=== PATIENT | female | born 1955 | race Caucasian/White ===

== ENCOUNTER 2019-11-10 20:28 | Emergency (ER) | payer MEDICAID ==
[~2019-11-10 20:28] MED LIST: Metoclopramide 10 MG/2 ML SDV IVPUSH ONE; Sodium Chloride 0.9% 1,000 ML IV ONE
[2019-11-10 21:26] LABS: ANION GAP 10.8; CHLORIDE,CL 104 mmol/L (101-111); SODIUM,NA 136 mmol/L (135-145)
[2019-11-10] MEDS ORDERED: Sodium Chloride 0.9% 1,000 ML IV ONE (21:31)
--- NOTE | 2019-11-10 23:46 | EDM.PDOC ---
ED HPI GENERAL MEDICAL PROBLEM - General Chief Complaint: Gastrointestinal Problem Stated Complaint: AMB Time Seen by Provider: 11/10/19 20:50 Source of Information: Reports: Patient, EMS, EMS Notes Reviewed, Family, RN, RN Notes Reviewed History Limitations: Reports: No Limitations - History of Present Illness INITIAL COMMENTS - FREE TEXT/NARRATIVE: Patient presents to ER per [facility] with complaint of severe nausea and vomiting since Saturday. Patient denies diarrhea. Patient admits to feeling chilled at times. Patient admits to being unsteady recently. Patient states she just recently moved back to [place] to live with her son. ambulance providers state the patient had sour cream and onion chips sitting next to her and had been eating them prior to them picking her up. Patient states history of epilepsy, COPD, asthma. Onset: Gradual Onset Date: 11/06/19 Location: Reports: Abdomen Associated Symptoms: Reports: Nausea/Vomiting, Weakness Abdomen Pain Score (Numeric/FACES): 4 - Related Data Allergies Allergy/AdvReac Type Severity Reaction Status Date / Time carbamazepine [From Tegretol] Allergy Anaphylactic Verified 11/10/19 21:48 Shock epinephrine Allergy Itching Verified 11/10/19 21:48 indomethacin Allergy Numbness Verified 11/10/19 21:48 pregabalin [From Lyrica] Allergy Other Verified 11/10/19 21:48 primidone [From Mysoline] Allergy Dizziness Verified 11/10/19 21:48 Home Meds: Home Meds Acetaminophen with Codeine [Acetaminophen-Cod #4] 1 tab PO Q6H PRN 11/10/19 [ History] Budesonide/Formoterol [Symbicort 160-4.5 MCG] 1 puff INH ASDIRECTED 11/10/19 [ History] Losartan [Cozaar] 25 mg PO ASDIRECTED 11/10/19 [History] OXcarbazepine [Oxcarbazepine] 1 tab PO BID 11/10/19 [History] diphenhydrAMINE [Benadryl] 25 mg PO ASDIRECTED 11/10/19 [History] rOPINIRole [Requip] 0.25 mg PO BEDTIME 11/10/19 [History] traZODone HCl [Trazodone HCl] 150 mg PO BEDTIME 11/10/19 [History] Past Medical History HEENT History: Reports: Impaired Vision, Other (See Below) Other HEENT History: no teeth, not wearing dentures Cardiovascular History: Reports: Hypertension Respiratory History: Reports: COPD Musculoskeletal History: Reports: Fracture - Past Surgical History GI Surgical History: Reports: Appendectomy Social & Family History - Family History Family Medical History: Noncontributory - Tobacco Use Smoking Status *Q: Former Smoker Used Tobacco, but Quit: Yes Month/Year Tobacco Last Used: unk - Caffeine Use Caffeine Use: Reports: Coffee - Recreational Drug Use Recreational Drug Use: No ED ROS GENERAL - Review of Systems Review Of Systems: Comprehensive ROS is negative, except as noted in HPI. ED EXAM, GI/ABD - Physical Exam Exam: See Below Exam Limited By: No Limitations General Appearance: Alert, WD/WN, Mild Distress Eyes: Bilateral: Normal Appearance, EOMI Ears: Normal External Exam, Hearing Grossly Normal Nose: Normal Inspection Throat/Mouth: Normal Voice, No Airway Compromise, Other (ry mucous membranes). No: Normal Teeth Head: Atraumatic, Normocephalic Neck: Normal Inspection, Supple, Non-Tender, Full Range of Motion Respiratory/Chest: No Respiratory Distress, Lungs Clear, Normal Breath Sounds, No Accessory Muscle Use, Chest Non-Tender Cardiovascular: Normal Peripheral Pulses, Regular Rate, Rhythm, No Edema, No Gallop, No JVD, No Murmur, No Rub GI/Abdominal Exam: Normal Bowel Sounds, Soft, Non-Tender (Female) Exam: Deferred Rectal (Female) Exam: Deferred Back Exam: Normal Inspection, Full Range of Motion, NT Extremities: Normal Inspection, Normal Range of Motion, Non-Tender, Normal Capillary Refill, No Pedal Edema Neurological: Alert, Oriented, CN II-XII Intact, Normal Cognition, Normal Gait, Normal Reflexes, No Motor/Sensory Deficits Psychiatric: Normal Affect, Normal Mood, Anxious Skin Exam: Warm, Dry, Intact, Normal Color, No Rash Lymphatic: No Adenopathy Course - Vital Signs Last Recorded V/S: Last Vital Signs Temp 96.0 F L 11/10/19 20:44 Pulse 96 11/10/19 20:44 Resp 20 11/10/19 20:44 BP 134/83 11/10/19 20:46 Pulse Ox 99 11/10/19 20:44 - Orders/Labs/Meds Orders: Active Orders 24 hr Category Date Time Status EKG Documentation Completion [RC] STAT Care 11/10/19 20:23 Active Labs: Laboratory Tests 11/10/19 11/10/19 11/10/19 Range/Units 20:51 20:51 20:51 WBC 8.8 (5.0-10.0) 10^3/uL RBC 4.28 (4.2-5.4) 10^6/uL Hgb 13.4 (12.0-16.0) g/dL Hct 41.8 (37.0-47.0) % MCV 97.7 (80-100) fL MCH 31.3 (27.0-34.0) pg MCHC 32.1 L (33.0-35.0) g/dL Plt Count 105 L (150-450) 10^3/uL Neut % (Auto) 67.1 (42.2-75.2) % Lymph % (Auto) 17.4 L (20.5-50.1) % [place] % (Auto) 13.6 H (2-8) % Eos % (Auto) 1.4 (1.0-3.0) % Baso % (Auto) 0.5 (0.0-1.0) % Sodium 136 (135-145) mmol/L Potassium 3.8 (3.6-5.0) mmol/L Chloride 104 (101-111) mmol/L Carbon Dioxide 25.0 (21.0-31.0) mmol/L Anion Gap 10.8 BUN 20 H (7-18) mg/dL Creatinine 0.7 (0.6-1.3) mg/dL Est Cr Clr Drug Dosing 59.85 mL/min Estimated GFR (MDRD) > 60 BUN/Creatinine Ratio 28.57 Glucose 159 H (74-105) mg/dL Calcium 8.6 (8.4-10.2) mg/dl Total Bilirubin 0.5 (0.2-1.0) mg/dL AST 27 (10-42) IU/L ALT 37 (10-60) IU/L Alkaline Phosphatase 88 (42-121) IU/L Troponin I < 0.02 (0.00-0.02) ng/ml Total Protein 6.8 (6.7-8.2) g/dl Albumin 3.8 (3.2-5.5) g/dl Globulin 3.0 Albumin/Globulin Ratio 1.27 Amylase 32 (28-100) U/L Lipase 22 (22-51) U/L Urine Color (YELLOW) Urine Appearance (CLEAR) Urine pH (5.0-9.0) Ur Specific [place] (1.005-1.030) Urine Protein (NEGATIVE) Urine Glucose (UA) (NEGATIVE) Urine Ketones (NEGATIVE) Urine Occult Blood (NEGATIVE) Urine Nitrite (NEGATIVE) Urine Bilirubin (NEGATIVE) Urine Urobilinogen (0.2-1.0) mg/dL Ur Leukocyte Esterase (NEGATIVE) Urine RBC /HPF Urine WBC (0-5/HPF) /HPF Ur Epithelial Cells (NOT SEEN) /HPF Amorphous Sediment (NOT SEEN) /HPF Urine Bacteria (0-FEW/HPF) /HPF Urine Mucus (NOT SEEN) /LPF 11/10/19 Range/Units 23:36 WBC (5.0-10.0) 10^3/uL RBC (4.2-5.4) 10^6/uL Hgb (12.0-16.0) g/dL Hct (37.0-47.0) % MCV (80-100) fL MCH (27.0-34.0) pg MCHC (33.0-35.0) g/dL Plt Count (150-450) 10^3/uL Neut % (Auto) (42.2-75.2) % Lymph % (Auto) (20.5-50.1) % [place] % (Auto) (2-8) % Eos % (Auto) (1.0-3.0) % Baso % (Auto) (0.0-1.0) % Sodium (135-145) mmol/L Potassium (3.6-5.0) mmol/L Chloride (101-111) mmol/L Carbon Dioxide (21.0-31.0) mmol/L Anion Gap BUN (7-18) mg/dL Creatinine (0.6-1.3) mg/dL Est Cr Clr Drug Dosing mL/min Estimated GFR (MDRD) BUN/Creatinine Ratio Glucose (74-105) mg/dL Calcium (8.4-10.2) mg/dl Total Bilirubin (0.2-1.0) mg/dL AST (10-42) IU/L ALT (10-60) IU/L Alkaline Phosphatase (42-121) IU/L Troponin I (0.00-0.02) ng/ml Total Protein (6.7-8.2) g/dl Albumin (3.2-5.5) g/dl Globulin Albumin/Globulin Ratio Amylase (28-100) U/L Lipase (22-51) U/L Urine Color Yellow (YELLOW) Urine Appearance Slightly cloudy (CLEAR) Urine pH 7.0 (5.0-9.0) Ur Specific [place] 1.020 (1.005-1.030) Urine Protein Negative (NEGATIVE) Urine Glucose (UA) Negative (NEGATIVE) Urine Ketones Negative (NEGATIVE) Urine Occult Blood Trace-intact H (NEGATIVE) Urine Nitrite Negative (NEGATIVE) Urine Bilirubin Negative (NEGATIVE) Urine Urobilinogen 0.2 (0.2-1.0) mg/dL Ur Leukocyte Esterase Negative (NEGATIVE) Urine RBC 0-5 /HPF Urine WBC Not seen (0-5/HPF) /HPF Ur Epithelial Cells Few (NOT SEEN) /HPF Amorphous Sediment Rare (NOT SEEN) /HPF Urine Bacteria Rare (0-FEW/HPF) /HPF Urine Mucus Rare (NOT SEEN) /LPF Meds: Medications Discontinued Medications Generic Name Dose Route Start Last Admin Trade Name Freq PRN Reason Stop Dose Admin Sodium Chloride 1,000 mls @ 999 mls/hr 11/10/19 20:24 11/10/19 20:37 Normal Saline IV 11/10/19 21:24 999 mls/hr .BOLUS ONE Administration Sodium Chloride 1,000 mls @ 999 mls/hr 11/10/19 21:31 11/10/19 22:40 Normal Saline IV 11/10/19 22:31 100 mls/hr .BOLUS ONE Infusion Metoclopramide HCl 10 mg 11/10/19 20:24 11/10/19 20:38 Reglan IVPUSH 11/10/19 20:25 10 mg ONETIME ONE Administration Metoclopramide HCl 10 mg 11/10/19 23:55 Reglan IVPUSH 11/10/19 23:56 ONETIME ONE Departure - Departure Time of Disposition: 23:55 Disposition: Home, Self-Care 01 Condition: Fair Clinical Impression: Vomiting Gastritis Qualifiers: Gastritis type: unspecified gastritis Chronicity: acute Gastritis bleeding: without bleeding Qualified Code(s): K29.00 - Acute gastritis without bleeding - Discharge Information *PRESCRIPTION DRUG MONITORING PROGRAM REVIEWED*: No *COPY OF PRESCRIPTION DRUG MONITORING REPORT IN PATIENT KATINA: No Instructions: Gastritis, Adult, [id number], Nausea and Vomiting, Adult, Easy- to-Read, Abdominal Pain, Adult, [id number], Dehydration, Elderly, [id number] , Food Poisoning, [id number] Forms: ED Department Discharge Additional Instructions: bowel rest, clear liquids, advance diet to soft bland foods as tolerated drink small amounts of liquid, preferably water frequently throughout the day Follow-up with your primary care provider RX: Reglan as directed for nausea/upset stomach Sepsis Event Note - Evaluation Sepsis Screening Result: No Definite Risk - Focused Exam Vital Signs: Vital Signs Temp Pulse Resp BP Pulse Ox 11/10/19 20:46 134/83 11/10/19 20:44 96.0 F L 96 20 196/126 H 99 Date Exam was Performed: 11/10/19 Time Exam was Performed: 23:57 - My Orders Last 24 Hours: My Active Orders 11/10/19 20:23 EKG Documentation Completion [RC] STAT - Assessment/Plan Last 24 Hours: My Active Orders 11/10/19 20:23 EKG Documentation Completion [RC] STAT
[2019-11-10] MEDS ORDERED: Metoclopramide 10 MG/2 ML SDV IVPUSH ONE (23:55)
[2019-11-11] MEDS ORDERED: cloNIDine 0.1 MG Tab PO ONE (00:32)
[2019-11-11 00:37] VITALS: BP 212/105
[2019-11-11 01:00] VITALS: PULSE 79
== END 2019-11-11 00:25 | disposition home or self-care (01) ==
LOC: DL.ED 20:28
DX: K29.00 Acute gastritis without bleeding (principal); I10 Essential (primary) hypertension; J44.9 Chronic obstructive pulmonary disease, unspecified; Z88.8 Allergy status to other drugs, medicaments and biological substances; Z79.51 Long term (current) use of inhaled steroids; Z79.899 Other long term (current) drug therapy; Z87.891 Personal history of nicotine dependence
CPT/HCPCS: 36415; 80053; 81001; 82150; 83690; 84484; 85025; 93005; 96361; 96374; 96376; 99285; A9270; J2765; J7030

== ENCOUNTER 2019-11-15 17:54 | Emergency (ER) | payer MEDICAID ==
[2019-11-15 19:12] VITALS: BP 138/95; PULSE 99
--- NOTE | 2019-11-15 21:18 | EDM.PDOC ---
ED HPI GENERAL MEDICAL PROBLEM - General Chief Complaint: Lower Extremity Injury/Pain Stated Complaint: FELL AND INJURED RT ANKLE Time Seen by Provider: 11/15/19 19:20 Source of Information: Reports: Patient History Limitations: Reports: No Limitations - History of Present Illness INITIAL COMMENTS - FREE TEXT/NARRATIVE: slipped on bag pain right ankle non weight bearing, has walker coming. 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 Right Ankle Pain Score (Numeric/FACES): 7 - Related Data Allergies Allergy/AdvReac Type Severity Reaction Status Date / Time carbamazepine [From Tegretol] Allergy Anaphylactic Verified 11/10/19 21:48 Shock epinephrine Allergy Itching Verified 11/10/19 21:48 gabapentin Allergy Numbness Verified 11/15/19 19:14 indomethacin Allergy Numbness Verified 11/10/19 21:48 phenytoin [From Dilantin] Allergy Other Verified 11/15/19 19:14 pregabalin [From Lyrica] Allergy Other Verified 11/10/19 21:48 primidone [From Mysoline] Allergy Dizziness Verified 11/10/19 21:48 Home Meds: Home Meds Acetaminophen with Codeine [Acetaminophen-Cod #4] 1 tab PO Q6H PRN 11/10/19 [ History] Budesonide/Formoterol [Symbicort 160-4.5 MCG] 1 puff INH ASDIRECTED 11/10/19 [ History] Losartan [Cozaar] 25 mg PO ASDIRECTED 11/10/19 [History] OXcarbazepine [Oxcarbazepine] 1 tab PO BID 11/10/19 [History] diphenhydrAMINE [Benadryl] 25 mg PO Q6H 11/10/19 [History] rOPINIRole [Requip] 0.25 mg PO BEDTIME 11/10/19 [History] traZODone HCl [Trazodone HCl] 150 mg PO BEDTIME 11/10/19 [History] Albuterol [Ventolin HFA] 2 puff INH BID 11/15/19 [History] Divalproex Sodium [Depakote] 500 mg PO BIDMEALS 11/15/19 [History] Losartan Potassium 25 mg PO DAILY 11/15/19 [History] Pantoprazole [ProTONIX] 40 mg PO BID 11/15/19 [History] Past Medical History HEENT History: Reports: Impaired Vision, Other (See Below) Other HEENT History: no teeth, not wearing dentures Cardiovascular History: Reports: Hypertension Respiratory History: Reports: COPD Gastrointestinal History: Reports: None Genitourinary History: Reports: None Musculoskeletal History: Reports: Fracture, Fibromyalgia Neurological History: Reports: None Psychiatric History: Reports: Other (See Below) Other Psychiatric History: manic depressive Endocrine/Metabolic History: Reports: None Hematologic History: Reports: None Immunologic History: Reports: None Oncologic (Cancer) History: Reports: None Dermatologic History: Reports: None - Infectious Disease History Infectious Disease History: Reports: None - Past Surgical History Head Surgeries/Procedures: Reports: None GI Surgical History: Reports: Appendectomy Social & Family History - Family History Family Medical History: Noncontributory - Tobacco Use Smoking Status *Q: Former Smoker Years of Tobacco use: 30 Packs/Tins Daily: 0 Used Tobacco, but Quit: No - Caffeine Use Caffeine Use: Reports: Coffee, Soda, Tea - Recreational Drug Use Recreational Drug Use: No Review of Systems - Review of Systems Review Of Systems: Comprehensive ROS is negative, except as noted in HPI. ED EXAM, GENERAL - Physical Exam Exam: See Below Exam Limited By: No Limitations General Appearance: Alert, Mild Distress Eye Exam: Bilateral Eye: EOMI Ears: Normal External Exam Throat/Mouth: Normal Voice, No Airway Compromise Head: Atraumatic, Normocephalic Neck: Full Range of Motion Respiratory/Chest: No Respiratory Distress, Lungs Clear, Normal Breath Sounds Cardiovascular: Regular Rate, Rhythm GI/Abdominal: Soft Extremities: Normal Range of Motion, Joint Swelling (mild right ankle), Other ( old well healed surgical scars to lright ankle. ). No: Increased Warmth Neurological: Alert, Oriented Psychiatric: Normal Affect Skin Exam: Warm, Dry, Intact Course - Vital Signs Last Recorded V/S: Last Vital Signs Temp 97.2 F 11/15/19 19:11 Pulse 99 11/15/19 19:11 Resp 18 11/15/19 19:11 BP 138/95 H 11/15/19 19:11 Pulse Ox 98 11/15/19 19:11 Departure - Departure Time of Disposition: 21:14 Disposition: Home, Self-Care 01 Condition: Good Clinical Impression: Fall, Right ankle pain - Discharge Information *PRESCRIPTION DRUG MONITORING PROGRAM REVIEWED*: No *COPY OF PRESCRIPTION DRUG MONITORING REPORT IN PATIENT KATINA: No Instructions: Ankle Sprain, [id number] Forms: ED Department Discharge Additional Instructions: rest elevate ice to ankle cam boot weight bearing s tolerated recheck clinic one week alternate tylenol 650mg and ibuprofen 400mg every 4 hours as needed for discomfort Sepsis Event Note - Evaluation Sepsis Screening Result: No Definite Risk - Focused Exam Vital Signs: Vital Signs Temp Pulse Resp BP Pulse Ox 11/15/19 19:11 97.2 F 99 18 138/95 H 98 Date Exam was Performed: 11/16/19 Time Exam was Performed: 04:22
== END 2019-11-15 21:25 | disposition home or self-care (01) ==
LOC: DL.ED 17:54
DX: M25.571 Pain in right ankle and joints of right foot (principal); I10 Essential (primary) hypertension; J44.9 Chronic obstructive pulmonary disease, unspecified; F32.9 Major depressive disorder, single episode, unspecified; Z87.891 Personal history of nicotine dependence; Z79.899 Other long term (current) drug therapy; Z88.8 Allergy status to other drugs, medicaments and biological substances; W22.8XXA Striking against or struck by other objects, initial encounter
CPT/HCPCS: 73610-RT; 99283-25

== ENCOUNTER 2020-07-02 23:05 | Emergency (ER) | payer MEDICAID ==
[2020-07-02 23:19] VITALS: BP 148/85; PULSE 90
[2020-07-03 00:05] LABS: ANION GAP 12.9 mEq/L (7-13); CHLORIDE,CL 107 mmol/L (98-107); SODIUM,NA 144 mmol/L (136-145)
[2020-07-03] MEDS ORDERED: methylPREDNISolone Sodium Succinate 125 MG/2 ML SDV IVPUSH ONE (00:09)
[2020-07-03] MEDS ORDERED: Aspirin 81 MG Tab.Chew PO ONE (00:10)
--- NOTE | 2020-07-03 00:13 | CR ---
PROCEDURE INFORMATION: Exam: XR Chest, 1 View Exam date and time: 07/02/2020 11:59 PM Age: 64 years old Clinical indication: Other: Chest pain; Additional info: SOB, chest pain TECHNIQUE: Imaging protocol: XR of the chest Views: 1 view. COMPARISON: No relevant prior studies available. FINDINGS: Lungs: Mild apical hyperlucency suspicious for COPD. Mild central vascular congestion. Alveolar opacity in the medial basilar distributions bilaterally, right greater than left, concerning for basilar pneumonia versus edema or atelectasis. Pleural space: No pleural effusion. No pneumothorax. Heart/Mediastinum: Moderate cardiomegaly. No tracheal/mediastinal shift. Bones/joints: No acute osseous abnormalities are identified. Osteopenia. IMPRESSION: 1. Medial basilar alveolar densities, right greater than left, concerning for possible pneumonia versus atelectasis or edema. 2. Cardiomegaly and mild vascular congestion. 3. Suspect underlying COPD.
[2020-07-03] MEDS ORDERED: Azithromycin 250 MG Tab PO ONE (00:30)
[2020-07-03] MEDS ORDERED: Levofloxacin 500 MG Tab PO ONE (00:40)
--- NOTE | 2020-07-03 00:53 | EDM.PDOC ---
ED HPI GENERAL MEDICAL PROBLEM - General Chief Complaint: Respiratory Problem Stated Complaint: SOB, COBD, CHEST PAIN, ASTHMA, Time Seen by Provider: 07/02/20 23:15 Source of Information: Reports: Patient History Limitations: Reports: No Limitations - History of Present Illness INITIAL COMMENTS - FREE TEXT/NARRATIVE: ED with c/o SOB occasional cough, Hx COPD and pneumonia this time of year. Possible COVID exposure . States does not go out but has had notices placed on door the residents in building have been positive. Past 2 days using neb every 4 hours. Denies fever or chills no vomiting. Non productive cough. No nausea or vomiting. Denies chest pain. - Related Data Allergies Allergy/AdvReac Type Severity Reaction Status Date / Time carbamazepine [From Tegretol] Allergy Anaphylactic Verified 11/10/19 21:48 Shock epinephrine Allergy Itching Verified 11/10/19 21:48 gabapentin Allergy Numbness Verified 11/15/19 19:14 indomethacin Allergy Numbness Verified 11/10/19 21:48 phenytoin [From Dilantin] Allergy Other Verified 11/15/19 19:14 pregabalin [From Lyrica] Allergy Other Verified 11/10/19 21:48 primidone [From Mysoline] Allergy Dizziness Verified 11/10/19 21:48 Home Meds: Home Meds Acetaminophen with Codeine [Acetaminophen-Cod #4] 1 tab PO Q6H PRN 11/10/19 [H istory] Budesonide/Formoterol [Symbicort 160-4.5 MCG] 1 puff INH ASDIRECTED 11/10/19 [History] Losartan [Cozaar] 25 mg PO ASDIRECTED 11/10/19 [History] OXcarbazepine [Oxcarbazepine] 1 tab PO BID 11/10/19 [History] diphenhydrAMINE [Benadryl] 25 mg PO Q6H 11/10/19 [History] rOPINIRole [Requip] 0.25 mg PO BEDTIME 11/10/19 [History] traZODone HCl [Trazodone HCl] 150 mg PO BEDTIME 11/10/19 [History] Albuterol [Ventolin HFA] 2 puff INH BID 11/15/19 [History] Divalproex Sodium [Depakote] 500 mg PO BIDMEALS 11/15/19 [History] Losartan Potassium 25 mg PO DAILY 11/15/19 [History] Pantoprazole [ProTONIX] 40 mg PO BID 11/15/19 [History] Past Medical History HEENT History: Reports: Impaired Vision, Other (See Below) Other HEENT History: no teeth, not wearing dentures Cardiovascular History: Reports: Hypertension Respiratory History: Reports: COPD Gastrointestinal History: Reports: None Genitourinary History: Reports: None Musculoskeletal History: Reports: Fracture, Fibromyalgia Neurological History: Reports: None Psychiatric History: Reports: Other (See Below) Other Psychiatric History: manic depressive Endocrine/Metabolic History: Reports: None Hematologic History: Reports: None Immunologic History: Reports: None Oncologic (Cancer) History: Reports: None Dermatologic History: Reports: None - Infectious Disease History Infectious Disease History: Reports: None - Past Surgical History Head Surgeries/Procedures: Reports: None GI Surgical History: Reports: Appendectomy Social & Family History - Family History Family Medical History: Noncontributory - Tobacco Use Smoking Status *Q: Former Smoker Used Tobacco, but Quit: Yes Month/Year Tobacco Last Used: 07/02 - Caffeine Use Caffeine Use: Reports: Coffee, Soda, Tea - Recreational Drug Use Recreational Drug Use: No ED ROS GENERAL - Review of Systems Review Of Systems: Comprehensive ROS is negative, except as noted in HPI. ED EXAM, GENERAL - Physical Exam Exam: See Below Exam Limited By: No Limitations General Appearance: Alert, Mild Distress Eye Exam: Bilateral Eye: EOMI Ears: Normal External Exam, Hearing Grossly Normal Nose: Normal Inspection Throat/Mouth: Normal Inspection Head: Atraumatic, Normocephalic Neck: Normal Inspection Respiratory/Chest: Decreased Breath Sounds, Other (mild exertional dyspnea and orthopnea). No: Wheezing Cardiovascular: Normal Peripheral Pulses, Regular Rate, Rhythm, No Edema GI/Abdominal: Normal Bowel Sounds, Soft Extremities: Normal Inspection, Normal Range of Motion Neurological: Alert, Oriented Psychiatric: Normal Affect Skin Exam: Warm, Dry, Intact, Normal Color Course - Vital Signs Last Recorded V/S: Last Vital Signs Temp 96.6 F L 07/02/20 23:15 Pulse 90 07/02/20 23:15 Resp 13 07/02/20 23:15 BP 148/85 H 07/02/20 23:15 Pulse Ox 97 07/02/20 23:15 - Orders/Labs/Meds Labs: Laboratory Tests 07/02/20 07/02/20 07/02/20 Range/Units 22:33 22:33 22:33 WBC 7.4 (5.0-10.0) 10^3/uL RBC 4.38 (4.2-5.4) 10^6/uL Hgb 13.5 (12.0-16.0) g/dL Hct 42.1 (37.0-47.0) % MCV 96.1 (80-100) fL MCH 30.8 (27.0-34.0) pg MCHC 32.1 L (33.0-35.0) g/dL Plt Count 167 (150-450) 10^3/uL Neut % (Auto) 58.5 (42.2-75.2) % Lymph % (Auto) 23.2 (20.5-50.1) % [place] % (Auto) 13.3 H (2-8) % Eos % (Auto) 4.5 H (1.0-3.0) % Baso % (Auto) 0.5 (0.0-1.0) % PT 10.4 (9.0-12.0) SEC INR 1.1 (0.9-1.2) Sodium 144 (136-145) mmol/L Potassium 3.9 (3.5-5.1) mmol/L Chloride 107 (98-107) mmol/L Carbon Dioxide 28 (21-32) mmol/L Anion Gap 12.9 (7-13) mEq/L BUN 20 H (7-18) mg/dL Creatinine 0.86 (0.55-1.02) mg/dL Est Cr Clr Drug Dosing 51.18 mL/min Estimated GFR (MDRD) > 60 BUN/Creatinine Ratio 23.3 (No establ ref range) Glucose 105 H (74-99) mg/dL Lactic Acid (0.4-2.0) mmol/L Calcium 8.9 (8.5-10.1) mg/dL Total Bilirubin 0.2 (0.2-1.0) mg/dL AST 11 L (15-37) U/L ALT 12 L (14-59) U/L Alkaline Phosphatase 68 (46-116) U/L Troponin I < 0.017 (0.000-0.056) ng/mL B-Natriuretic Peptide 115 H (0-100) pg/ml Total Protein 6.4 (6.4-8.2) g/dL Albumin 3.1 L (3.4-5.0) g/dL Globulin 3.3 Albumin/Globulin Ratio 0.94 Amylase 43 (25-115) U/L Lipase (73-393) U/L SARS CoV-2 RNA Rapid JOY (NEGATIVE) 07/02/20 07/02/20 07/02/20 Range/Units 22:33 22:33 23:25 WBC (5.0-10.0) 10^3/uL RBC (4.2-5.4) 10^6/uL Hgb (12.0-16.0) g/dL Hct (37.0-47.0) % MCV (80-100) fL MCH (27.0-34.0) pg MCHC (33.0-35.0) g/dL Plt Count (150-450) 10^3/uL Neut % (Auto) (42.2-75.2) % Lymph % (Auto) (20.5-50.1) % [place] % (Auto) (2-8) % Eos % (Auto) (1.0-3.0) % Baso % (Auto) (0.0-1.0) % PT (9.0-12.0) SEC INR (0.9-1.2) Sodium (136-145) mmol/L Potassium (3.5-5.1) mmol/L Chloride (98-107) mmol/L Carbon Dioxide (21-32) mmol/L Anion Gap (7-13) mEq/L BUN (7-18) mg/dL Creatinine (0.55-1.02) mg/dL Est Cr Clr Drug Dosing mL/min Estimated GFR (MDRD) BUN/Creatinine Ratio (No establ ref range) Glucose (74-99) mg/dL Lactic Acid 2.2 H* (0.4-2.0) mmol/L Calcium (8.5-10.1) mg/dL Total Bilirubin (0.2-1.0) mg/dL AST (15-37) U/L ALT (14-59) U/L Alkaline Phosphatase (46-116) U/L Troponin I (0.000-0.056) ng/mL B-Natriuretic Peptide (0-100) pg/ml Total Protein (6.4-8.2) g/dL Albumin (3.4-5.0) g/dL Globulin Albumin/Globulin Ratio Amylase (25-115) U/L Lipase 79 (73-393) U/L SARS CoV-2 RNA Rapid JOY Negative (NEGATIVE) Meds: Medications Discontinued Medications Generic Name Dose Route Start Last Admin Trade Name Freq PRN Reason Stop Dose Admin Aspirin 324 mg 07/03/20 00:10 07/03/20 00:17 Aspirin PO 07/03/20 00:11 324 mg ONETIME ONE Administration Azithromycin 500 mg 07/03/20 00:30 Zithromax PO 07/03/20 00:31 ONETIME ONE Levofloxacin 500 mg 07/03/20 00:40 07/03/20 00:44 Levaquin PO 07/03/20 00:41 500 mg ONETIME ONE Administration Methylprednisolone Sodium Succinate 125 mg 07/03/20 00:09 07/03/20 00:17 Solu-Medrol IVPUSH 07/03/20 00:10 125 mg ONETIME ONE Administration Departure - Departure Time of Disposition: 00:50 Disposition: Home, Self-Care 01 Condition: Fair Clinical Impression: COPD exacerbation Pneumonia Qualifiers: Pneumonia type: due to unspecified organism Laterality: bilateral Lung location: lower lobe of lung Qualified Code(s): J18.9 - Pneumonia, unspecified organism - Discharge Information *PRESCRIPTION DRUG MONITORING PROGRAM REVIEWED*: No *COPY OF PRESCRIPTION DRUG MONITORING REPORT IN PATIENT KATINA: No Instructions: Chronic Obstructive Pulmonary Disease, [id number], Community- Acquired Pneumonia, Adult, [id number] Forms: ED Department Discharge Additional Instructions: rest levaquin 500mg daily for one week clinic recheck this week urgent follow up if symptoms worsen prednisone 20mg daily for 5 days continue home medications albuterol neb every 4 hours as needed Sepsis Event Note (ED) - Evaluation Sepsis Screening Result: No Definite Risk - Focused Exam Vital Signs: Vital Signs Temp Pulse Resp BP Pulse Ox 07/02/20 23:15 96.6 F L 90 13 148/85 H 97
== END 2020-07-03 00:57 | disposition home or self-care (01) ==
LOC: DL.ED 23:05
DX: J18.9 Pneumonia, unspecified organism (principal); J44.1 Chronic obstructive pulmonary disease with (acute) exacerbation; I10 Essential (primary) hypertension; Z87.891 Personal history of nicotine dependence; Z88.8 Allergy status to other drugs, medicaments and biological substances; Z88.6 Allergy status to analgesic agent; Z79.899 Other long term (current) drug therapy; Z20.828 Contact with and (suspected) exposure to other viral communicable diseases
CPT/HCPCS: 36415; 71045; 80053; 82150; 83605; 83690; 83880; 84484; 85025; 85610; 87635; 93005; 96374; 99285; A9270; J2930; U0002

== ENCOUNTER 2020-11-24 23:10 | Emergency (ER) | payer MEDICAID ==
--- NOTE | 2020-11-24 23:24 | EDM.PDOC ---
ED HPI GENERAL MEDICAL PROBLEM - General Stated Complaint: SHOULDER POPPED RIGHT HAND NUMBNESS Time Seen by Provider: 11/24/20 23:23 Source of Information: Reports: Patient, Family (Son), RN, RN Notes Reviewed History Limitations: Reports: No Limitations - History of Present Illness INITIAL COMMENTS - FREE TEXT/NARRATIVE: Patient presents to the ED via personal vehicle with son for complaints of right shoulder pain and numbness. The patient reports a history of bilateral rotator cuff surgery with surgery on the right roughly eight years ago. She states two nights ago she was rolling over in bed and noticed her shoulder "popped." When she woke in the morning she noticed an increase in pain from the normal baseline. Tonight she states she is now experiencing tingling down the extremity, into her fingertips, at motion and at rest. She does attest to not using the extremity often due to pain. She denies recent injury to the upper extremity. She denies loss of motor function from baseline. The patient reports she was scheduled for an MRI for followup of her previous rotator cuff injury, but she was not able to perform the exam due to anxiety. Right Shoulder Pain Score (Numeric/FACES): 7 - Related Data Allergies Allergy/AdvReac Type Severity Reaction Status Date / Time carbamazepine [From Tegretol] Allergy Anaphylactic Verified 11/24/20 23:26 Shock epinephrine Allergy Itching Verified 11/24/20 23:26 gabapentin Allergy Numbness Verified 11/24/20 23:26 indomethacin Allergy Numbness Verified 11/24/20 23:26 phenytoin [From Dilantin] Allergy Other Verified 11/24/20 23:26 pregabalin [From Lyrica] Allergy Other Verified 11/24/20 23:26 primidone [From Mysoline] Allergy Dizziness Verified 11/24/20 23:26 Home Meds: Home Meds Acetaminophen with Codeine [Acetaminophen-Cod #4] 1 tab PO Q6H PRN 11/10/19 [History] Budesonide/Formoterol [Symbicort 160-4.5 MCG] 1 puff INH ASDIRECTED 11/10/19 [History] Losartan [Cozaar] 25 mg PO ASDIRECTED 11/10/19 [History] OXcarbazepine [Oxcarbazepine] 1 tab PO BID 11/10/19 [History] diphenhydrAMINE [Benadryl] 25 mg PO Q6H 11/10/19 [History] rOPINIRole [Requip] 0.25 mg PO BEDTIME 11/10/19 [History] traZODone HCl [Trazodone HCl] 150 mg PO BEDTIME 11/10/19 [History] Albuterol [Ventolin HFA] 2 puff INH BID 11/15/19 [History] Divalproex Sodium [Depakote] 500 mg PO BIDMEALS 11/15/19 [History] Losartan Potassium 25 mg PO DAILY 11/15/19 [History] Pantoprazole [ProTONIX] 40 mg PO BID 11/15/19 [History] Past Medical History HEENT History: Reports: Impaired Vision, Other (See Below) Other HEENT History: no teeth, not wearing dentures Cardiovascular History: Reports: Hypertension Respiratory History: Reports: COPD Gastrointestinal History: Reports: None Genitourinary History: Reports: None Musculoskeletal History: Reports: Fracture, Fibromyalgia Neurological History: Reports: None Psychiatric History: Reports: Other (See Below) Other Psychiatric History: manic depressive Endocrine/Metabolic History: Reports: None Hematologic History: Reports: None Immunologic History: Reports: None Oncologic (Cancer) History: Reports: None Dermatologic History: Reports: None - Infectious Disease History Infectious Disease History: Reports: None - Past Surgical History Head Surgeries/Procedures: Reports: None GI Surgical History: Reports: Appendectomy Social & Family History - Family History Family Medical History: No Pertinent Family History - Caffeine Use Caffeine Use: Reports: Coffee, Soda, Tea Review of Systems - Review of Systems Review Of Systems: Comprehensive ROS is negative, except as noted in HPI. ED EXAM, GENERAL - Physical Exam Exam: See Below Exam Limited By: No Limitations General Appearance: Alert, No Apparent Distress Eye Exam: Bilateral Eye: EOMI, Normal Inspection, PERRL (3mm) Throat/Mouth: Normal Inspection, Normal Voice, No Airway Compromise Head: Atraumatic, Normocephalic Respiratory/Chest: No Respiratory Distress, Lungs Clear, Normal Breath Sounds, No Accessory Muscle Use, Chest Non-Tender Cardiovascular: Normal Peripheral Pulses, Regular Rate, Rhythm, No Edema, No Gallop, No JVD, No Murmur, No Rub Peripheral Pulses: 2+: Radial (L), Radial (R) Back Exam: Normal Inspection, Full Range of Motion Extremities: No Pedal Edema, Normal Capillary Refill, Arm Pain (To right shoulder with tingling to distal extremity), Limited Range of Motion (To bilateral upper extremities; Hx of rotator cuff surgery). No: Joint Swelling, Increased Warmth, Mottled, Pallor, Redness Neurological: Alert, Oriented, CN II-XII Intact, Normal Cognition, Normal Gait, No Motor/Sensory Deficits Psychiatric: Normal Affect, Normal Mood Skin Exam: Warm, Dry, Intact, Normal Color, No Rash. No: Ecchymosis, Erythema, Jaundice, Mottled, Pallor, Petechiae Course - Vital Signs Last Recorded V/S: Last Vital Signs Temp 98.2 F 11/24/20 23:26 Pulse 89 11/24/20 23:26 Resp 20 11/24/20 23:26 BP 144/87 H 11/24/20 23:50 Pulse Ox 96 11/24/20 23:26 - Re-Assessments/Exams Free Text/Narrative Re-Assessment/Exam: 11/25/20 Given lack of acute mechanism of injury to extremity will refrain from xray at this time; no gross deformity noted, no increase in pain with motion. Patient reports improvement in pain to extremity with application of sling. Patient instructed to follow up with her primary care provider regarding need for MRI and the possibility of an anxiolytic while obtaining image. Discussed supportive cares for pain management. Red flag signs and symptoms which would warrant reevaluation discussed. Patient verbalized understanding and agreement with the plan of care. Departure - Departure Time of Disposition: 23:41 Disposition: Home, Self-Care 01 Condition: Good Clinical Impression: Hx of rotator cuff surgery, Right arm numbness Right shoulder pain Qualifiers: Chronicity: chronic Qualified Code(s): M25.511 - Pain in right shoulder - Discharge Information *PRESCRIPTION DRUG MONITORING PROGRAM REVIEWED*: Not Applicable *COPY OF PRESCRIPTION DRUG MONITORING REPORT IN PATIENT KATINA: Not Applicable Instructions: How To Use a Sling, [id number] Forms: ED Department Discharge Additional Instructions: 1.) Follow up with your primary care provider regarding today's visit for ongoing management of chronic injury; you may need an MRI or Physical Therapy. 2.) Utilize cling for comfort. 3.) You may use ibuprofen (Advil/Motrin) 400mg every six hours, as pain persists. You may use acetaminophen (Tylenol) 650mg every six hours, as pain persists. You may stagger these medications so you are taking a dose every three hours. 4.) You may apply ice and heat to the shoulder for relief of pain. Sepsis Event Note (ED) - Focused Exam Vital Signs: Vital Signs Temp Pulse Resp BP Pulse Ox 11/24/20 23:50 144/87 H 11/24/20 23:26 98.2 F 89 20 158/112 H 96
[2020-11-24 23:30] VITALS: PULSE 89
[2020-11-25 00:01] VITALS: BP 144/87
== END 2020-11-24 23:52 | disposition home or self-care (01) ==
LOC: DL.ED 23:10
DX: M25.511 Pain in right shoulder (principal); R20.0 Anesthesia of skin; I10 Essential (primary) hypertension; J44.9 Chronic obstructive pulmonary disease, unspecified; Z79.899 Other long term (current) drug therapy; Z98.890 Other specified postprocedural states; Z88.8 Allergy status to other drugs, medicaments and biological substances
CPT/HCPCS: 99283

== ENCOUNTER 2020-12-29 18:12 | Emergency (ER) | payer MEDICAID ==
[2020-12-29 18:45] VITALS: BP 161/93; PULSE 85
--- NOTE | 2020-12-29 18:51 | EDM.PDOC ---
<Beto Sands Michelle - Last Filed: 12/29/20 18:44> ED HPI GENERAL MEDICAL PROBLEM - General Chief Complaint: Skin Complaint Stated Complaint: BOTH LEGS INFECTED RED AND BLOCHEE Time Seen by Provider: 12/29/20 18:44 Source of Information: Reports: Patient History Limitations: Reports: No Limitations - History of Present Illness INITIAL COMMENTS - FREE TEXT/NARRATIVE: 65 y/o F c/o bilateral leg pain. Pt states six weeks ago she developed two small ulcerations on her R and L legs. Since then they have progressed up her legs. On pt say her provider who prescribed her keflex. Pt has been taking keflex as prescribed but her lesions continued to progress up her legs. She reports the lesions are very painful and the two orignal lesions have begun to weep. Hx of epilepsy, chronic pain, fibromyalgia, hypoglycemia. Is supposed to be getting a study to assess the blood flow in her lower extremites at [facility] sometime in the future. Denies fever, cough, chills, cp, abd pn, pelvic pain, difficulty with urination, constipation or diarrhea. Onset: Gradual - Related Data Allergies Allergy/AdvReac Type Severity Reaction Status Date / Time carbamazepine [From Tegretol] Allergy Anaphylactic Verified 11/24/20 23:26 Shock epinephrine Allergy Itching Verified 11/24/20 23:26 gabapentin Allergy Numbness Verified 11/24/20 23:26 indomethacin Allergy Numbness Verified 11/24/20 23:26 phenytoin [From Dilantin] Allergy Other Verified 11/24/20 23:26 pregabalin [From Lyrica] Allergy Other Verified 11/24/20 23:26 primidone [From Mysoline] Allergy Dizziness Verified 11/24/20 23:26 Home Meds: Home Meds Acetaminophen with Codeine [Acetaminophen-Cod #4] 1 tab PO Q6H PRN 11/10/19 [History] Budesonide/Formoterol [Symbicort 160-4.5 MCG] 1 puff INH ASDIRECTED 11/10/19 [History] Losartan [Cozaar] 25 mg PO ASDIRECTED 11/10/19 [History] OXcarbazepine [Oxcarbazepine] 1 tab PO BID 11/10/19 [History] diphenhydrAMINE [Benadryl] 25 mg PO Q6H 11/10/19 [History] rOPINIRole [Requip] 0.25 mg PO BEDTIME 11/10/19 [History] traZODone HCl [Trazodone HCl] 150 mg PO BEDTIME 11/10/19 [History] Albuterol [Ventolin HFA] 2 puff INH BID 11/15/19 [History] Divalproex Sodium [Depakote] 500 mg PO BIDMEALS 11/15/19 [History] Losartan Potassium 25 mg PO DAILY 11/15/19 [History] Pantoprazole [ProTONIX] 40 mg PO BID 11/15/19 [History] Past Medical History HEENT History: Reports: Impaired Vision, Other (See Below) Other HEENT History: no teeth, not wearing dentures Cardiovascular History: Reports: Hypertension Respiratory History: Reports: Asthma, COPD Gastrointestinal History: Reports: None Genitourinary History: Reports: None Musculoskeletal History: Reports: Fracture, Fibromyalgia Neurological History: Reports: None Psychiatric History: Reports: Other (See Below) Other Psychiatric History: manic depressive Endocrine/Metabolic History: Reports: None Hematologic History: Reports: None Immunologic History: Reports: None Oncologic (Cancer) History: Reports: None Dermatologic History: Reports: None - Infectious Disease History Infectious Disease History: Reports: None - Past Surgical History Head Surgeries/Procedures: Reports: None GI Surgical History: Reports: Appendectomy Social & Family History - Family History Family Medical History: No Pertinent Family History - Caffeine Use Caffeine Use: Reports: Coffee ED ROS GENERAL - Review of Systems Review Of Systems: Comprehensive ROS is negative, except as noted in HPI. ED EXAM, SKIN/RASH Exam: See Below Exam Limited By: No Limitations General Appearance: Alert, WD/WN, No Apparent Distress Eye Exam: Bilateral Eye: PERRL Throat/Mouth: Normal Inspection, Normal Lips, Normal Teeth, Normal Gums, Normal Oropharynx, Normal Voice, No Airway Compromise Head: Atraumatic, Normocephalic Neck: Normal Inspection, Supple, Non-Tender, Full Range of Motion Respiratory/Chest: No Respiratory Distress Cardiovascular: Normal Peripheral Pulses, Regular Rate, Rhythm, No Edema, No Gallop, No JVD, No Murmur, No Rub Peripheral Pulses: 1+: Posterior Tibial (L), Posterior Tibial (R), Dorsalis Pedis (L), Dorsalis Pedis (R), 2+: Femoral (L) (Exquisite tenderness over the R and L femoral artery ), Femoral (R) GI/Abdominal: Soft, Non-Tender (Female) Exam: Deferred Rectal (Female) Exam: Deferred Back Exam: Normal Inspection, Full Range of Motion Extremities: Other (bilateral dark reddish punctate lesions with large lesions distally and smaller lesion proximally up to the mid thigh) Neurological: Alert, Oriented, CN II-XII Intact, Normal Cognition, Normal Gait, Normal Reflexes, No Motor/Sensory Deficits Psychiatric: Normal Affect, Normal Mood Skin: Warm, Dry, Intact, Other (except for previously mentioned exam findings) Departure - Departure Disposition: Home, Self-Care 01 Clinical Impression: Atopic dermatitis Qualifiers: Atopic dermatitis type: unspecified Qualified Code(s): L20.9 - Atopic dermatitis, unspecified Drug reaction Qualifiers: Encounter type: initial encounter Qualified Code(s): T50.905A - Adverse effect of unspecified drugs, medicaments and biological substances, initial encounter - Discharge Information Instructions: Atopic Dermatitis, Rash, Adult Forms: ED Department Discharge Additional Instructions: Use Hydrocortisone cream 1% over the counter to the affected areas Cover weeping areas STOP taking the Keflex (Cephalexin) Use Benadryl as directed Follow up with Dr. Del Valle tomorrow Return to the ER with any worsening of problems Follow up with vascular surgery <Ronnie Jiang - Last Filed: 12/29/20 18:58> ED HPI GENERAL MEDICAL PROBLEM Bilateral Leg Pain Score (Numeric/FACES): 10 Course - Re-Assessments/Exams Free Text/Narrative Re-Assessment/Exam: 12/29/20 I personally performed or re-performed the physical examination and medical decision making. I have verified all student documentation or findings, including history, physical exam and/or medical decision making. <Nara Michael - Last Filed: 12/29/20 20:40> Course - Vital Signs Last Recorded V/S: Last Vital Signs Temp 97.4 F 12/29/20 18:32 Pulse 85 12/29/20 18:32 Resp 22 H 12/29/20 18:32 BP 161/93 H 12/29/20 18:32 Pulse Ox 94 L 12/29/20 18:32 - Orders/Labs/Meds Orders: Active Orders 24 hr Category Date Time Status Peripheral IV Care [RC] . DIRECTED Care 12/29/20 18:56 Active OXCARBAZEPINE [REF] Stat Lab 12/29/20 19:12 Received UA RFX YAIMA AND CULT IF INDIC [URIN] Stat Lab 12/29/20 18:54 Ordered VALPROIC ACID [REF] Stat Lab 12/29/20 19:12 Received Sodium Chloride 0.9% [Saline Flush] Med 12/29/20 18:56 Active 10 ml FLUSH ASDIRECTED PRN Peripheral IV Insertion Adult [OM.PC] Stat Oth 12/29/20 18:56 Ordered Medication Orders Sodium Chloride (Sodium Chloride 0.9% 10 Ml Syringe) 10 ml FLUSH ASDIRECTED PRN PRN Reason: Keep Vein Open Last Admin: 12/29/20 19:10 Dose: 10 ml Documented by: HORTENCIA Labs: Laboratory Tests 12/29/20 12/29/20 12/29/20 Range/Units 19:12 19:12 19:12 WBC 7.3 (5.0-10.0) 10^3/uL RBC 4.55 (4.2-5.4) 10^6/uL Hgb 14.0 (12.0-16.0) g/dL Hct 43.8 (37.0-47.0) % MCV 96.3 (80-100) fL MCH 30.8 (27.0-34.0) pg MCHC 32.0 L (33.0-35.0) g/dL Plt Count 204 (150-450) 10^3/uL Neut % (Auto) 61.1 (42.2-75.2) % Lymph % (Auto) 20.7 (20.5-50.1) % Emery % (Auto) 12.3 H (2-8) % Eos % (Auto) 5.6 H (1.0-3.0) % Baso % (Auto) 0.3 (0.0-1.0) % ESR 7 (0-20) mm/hr Sodium 142 (136-145) mmol/L Potassium 4.1 (3.5-5.1) mmol/L Chloride 105 (98-107) mmol/L Carbon Dioxide 28 (21-32) mmol/L Anion Gap 13.1 H (7-13) mEq/L BUN 12 (7-18) mg/dL Creatinine 0.78 (0.55-1.02) mg/dL Est Cr Clr Drug Dosing 55.71 mL/min Estimated GFR (MDRD) > 60 BUN/Creatinine Ratio 15.4 (No establ ref range) Glucose 86 (70-99) mg/dL Calcium 8.6 (8.5-10.1) mg/dL Total Bilirubin 0.3 (0.2-1.0) mg/dL AST 7 L (15-37) U/L ALT 13 L (14-59) U/L Alkaline Phosphatase 62 (46-116) U/L C-Reactive Protein 0.3 (0.0-0.9) mg/dL Total Protein 6.4 (6.4-8.2) g/dL Albumin 3.1 L (3.4-5.0) g/dL Globulin 3.3 Albumin/Globulin Ratio 0.94 Meds: Medications Generic Name Dose Route Start Last Admin Trade Name Freq PRN Reason Stop Dose Admin Sodium Chloride 10 ml 12/29/20 18:56 12/29/20 19:10 Sodium Chloride 0.9% 10 Ml Syringe FLUSH 10 ml ASDIRECTED PRN Administration Keep Vein Open Discontinued Medications Generic Name Dose Route Start Last Admin Trade Name Freq PRN Reason Stop Dose Admin Hydrocortisone 30 gm 12/29/20 20:23 12/29/20 20:35 Hydrocortisone 1% Crm 30 Gm Tube TOP 12/29/20 20:24 1 dose ASDIRECTED ONE Administration Methylprednisolone Sodium Succinate 125 mg 12/29/20 20:14 12/29/20 20:22 Methylprednisolone Sodium Succinate 125 Mg/2 Ml Sdv IVPUSH 12/29/20 20:15 125 mg ONETIME ONE Administration - Re-Assessments/Exams Free Text/Narrative Re-Assessment/Exam: 12/29/20 20:39 I personally performed or re-performed the physical examination and medical decision making. I have verified all student documentation or findings, including history, physical exam and/or medical decision making. Departure - Departure Time of Disposition: 20:29 Condition: Good - Discharge Information *PRESCRIPTION DRUG MONITORING PROGRAM REVIEWED*: No *COPY OF PRESCRIPTION DRUG MONITORING REPORT IN PATIENT KATINA: No Sepsis Event Note (ED) - Focused Exam Vital Signs: Vital Signs Temp Pulse Resp BP Pulse Ox 12/29/20 18:32 97.4 F 85 22 H 161/93 H 94 L
[2020-12-29] MEDS ORDERED: Sodium Chloride 0.9% 10 ML Syringe FLUSH PRN (18:56)
[2020-12-29 19:42] LABS: ANION GAP 13.1 mEq/L (7-13); CHLORIDE,CL 105 mmol/L (98-107); SODIUM,NA 142 mmol/L (136-145)
[2020-12-29] MEDS ORDERED: methylPREDNISolone Sodium Succinate 125 MG/2 ML SDV IVPUSH ONE (20:14)
[2020-12-29] MEDS ORDERED: Hydrocortisone 1% Crm 30 GM Tube TOP ONE (20:23)
== END 2020-12-29 20:48 | disposition home or self-care (01) ==
LOC: DL.ED 18:12
DX: L20.9 Atopic dermatitis, unspecified (principal); T36.1X5A Adverse effect of cephalosporins and other beta-lactam antibiotics, initial encounter; G40.909 Epilepsy, unspecified, not intractable, without status epilepticus; I10 Essential (primary) hypertension; J44.9 Chronic obstructive pulmonary disease, unspecified; Z79.899 Other long term (current) drug therapy; Z88.8 Allergy status to other drugs, medicaments and biological substances
CPT/HCPCS: 36415; 80053; 80164; 80183; 85025; 85651; 86140; 96374; 99283; A9270; J2930

== ENCOUNTER 2021-07-10 06:32 | Day surgery (SDC) | payer MEDICAID ==
[~2021-07-10 06:32] MED LIST changes: +Dextrose 5%-0.45% NaCl 1,000 ML IV SCH; -Metoclopramide 10 MG/2 ML SDV IVPUSH ONE; +Midazolam 1 MG/ML 2 ML SDV ONE; -Sodium Chloride 0.9% 1,000 ML IV ONE; +Sodium Chloride 0.9% 10 ML Syringe FLUSH PRN; +fentaNYL 100 MCG/2 ML SDV ONE
[2021-07-10] MEDS ORDERED: fentaNYL 100 MCG/2 ML SDV IV ONE ×3 (06:33→07:40)
[2021-07-10] MEDS ORDERED: Midazolam 1 MG/ML 2 ML SDV IV ONE ×3 (06:33→07:41)
--- NOTE | 2021-07-10 08:32 | OR ---
DATE: 07/10/2021 PROCEDURES: Esophagogastroduodenoscopy and multiple pinch biopsies. INSTRUMENT USED: PCF-H190L Olympus video panendoscope. PREMEDICATIONS: No oral or topical anesthesia used. Fentanyl 100 mcg intravenous, Versed 2 mg intravenous, nasal O2 cannula. The procedure was done under pulse oximetry, BP recording, and security monitor. INDICATION: The patient with persistent longstanding heartburn, on acid suppressants, and also having intermittent diarrhea. Esophagogastroduodenoscopy is performed for detection of any active erosive lesions, Marti esophagus and/or malignancy also under consideration, H pylori status to be determined, small bowel biopsies to be obtained for any evidence of celiac disease, endoscopic hemostasis therapy if needed. PROCEDURE IN DETAIL: The scope was passed with ease. Adequate visualization of the esophagus was made from proximal to distal areas. No upper esophageal lesions identified. No distal esophageal stricture. No uphill or downhill esophageal varices. No Yaa-Rhodes tear. No evidence of erosive esophagitis by Grady criteria. No esophageal polyp or tumor mass identified. Z-line was seen at around 30 cm distal to the oral verge. Four-quadrant biopsies were taken and sent for any evidence of intestinal metaplasia. No proximal gastric varices noted. Gastric fundus examination by retroflexion showed no polypoid lesions. No gastric ulcer, malignant mass, or vascular ectasia identified. Streaky patchy antral gastritis was noted. Multiple pinch biopsies were obtained from the gastric antrum and proximal body and sent for PyloriTek test for H pylori and histopathology. Duodenal bulb showed no ulcer. Visualized second part of the duodenum was unremarkable. Multiple pinch biopsies, 4 in number, were taken from different areas of the second part of the duodenum and tissues were also obtained from the duodenal bulb at 9 and 12 o'clock positions and sent for any histopathologic evidence of celiac disease. No bleeding was noted from any of the visualized areas at the completion of examination. Photographs were taken of the duodenal bulb, gastric antrum, fundus, and distal esophagus. IMPRESSION: 1. Sliding hiatal hernia. 2. Patchy antral gastritis. The patient tolerated the procedure well. [facility] /[id number]
--- NOTE | 2021-07-10 09:53 | LETTER ---
07/10/2021 RE: SERENE MICHELE : 1955 Ivon Perdomo MD [facility], [place] [address] Perdomo: Ms. Serene Michele had esophagogastroduodenoscopy done this morning and she tolerated the procedure well. I herewith send a copy of the endoscopy note and photographs for your review. Thank you. Sincerely, [facility] /[id number]
[2021-07-10 10:28] VITALS: BP 145/111; PULSE 63
== END 2021-07-10 10:00 | disposition home or self-care (01) ==
LOC: DL.ENDO 06:32
PROVIDERS: ATTEND Internal Medicine Gastroenterology
DX: K29.50 Unspecified chronic gastritis without bleeding (principal); K44.9 Diaphragmatic hernia without obstruction or gangrene; K31.89 Other diseases of stomach and duodenum; I78.1 Nevus, non-neoplastic; G47.00 Insomnia, unspecified; G25.81 Restless legs syndrome; I10 Essential (primary) hypertension; E78.1 Pure hyperglyceridemia; E66.09 Other obesity due to excess calories; G40.909 Epilepsy, unspecified, not intractable, without status epilepticus; Z88.9 Allergy status to unspecified drugs, medicaments and biological substances; Z90.49 Acquired absence of other specified parts of digestive tract; Z98.890 Other specified postprocedural states
CPT/HCPCS: 87077; J2250; J3010; J7042

== ENCOUNTER 2021-07-11 05:30 | Day surgery (SDC) | payer MEDICAID ==
[2021-07-11] MEDS ORDERED: fentaNYL 100 MCG/2 ML SDV IV ONE ×4 (05:31→06:48)
[2021-07-11] MEDS ORDERED: Midazolam 1 MG/ML 2 ML SDV IV ONE ×7 (05:31→06:46)
[2021-07-11] MEDS ORDERED: Midazolam 1 MG/ML 2 ML SDV ONE (05:49)
[2021-07-11] MEDS ORDERED: fentaNYL 100 MCG/2 ML SDV ONE (05:49)
[2021-07-11] MEDS ORDERED: Dextrose 5%-0.45% NaCl 1,000 ML IV SCH (06:00)
--- NOTE | 2021-07-11 10:02 | OR ---
DATE: 07/11/2021 PROCEDURES: Total colonoscopy, narrow-band imaging, and cold snare polypectomy. INSTRUMENT USED: PCF-H190DL Olympus video colonoscope. PREMEDICATIONS: Fentanyl 125 mcg intravenous, Versed 4 mg intravenous. Nasal O2 cannula. The procedure was done under pulse oximetry, BP recording, and classroom monitor. INDICATIONS: The patient with intermittent diarrhea and constipation of recent onset, persistent in nature, and not responsive to medical measures. Colonoscopic examination is done for detection of any polypoid lesions and removal, endoscopic hemostasis therapy if needed. DESCRIPTION OF PROCEDURE: Initial rectal exam showed mild diffuse perianal erythema. Rigid anoscopy was normal. Photographs taken of the normal-appearing rectum. The scope was passed with ease up to the ileocecal area. Photographs were taken of the normal-appearing cecum identified by landmarks of appendiceal orifice and double-bulged ileocecal folds. No bleeding was noted from any of the visualized areas at the commencement of the examination. The bowel preparation was found to be adequate; [place] scale 2 in right and transverse colon, 3 in left colon, total score 7. The colon was found to be tortuous and redundant. No stricture. No vascular ectasia. No large isolated ulcerations seen. No evidence of diffuse inflammatory bowel disease in the form of friability, contact bleeding, or ulcerations. In the proximal ascending colon, 5 mm sized benign-appearing polyp was noted, NBI views were obtained, photographs were taken, cold snare polypectomy was done, and the tissue was retrieved and sent for histopathology. Probing the proximal sides of folds and flexures using adequate distention and clearing up the stool, withdrawal of scope was made, cecum to rectum time over 6 minutes. No bleeding was noted from any of the visualized areas at the completion of examination. IMPRESSION: Ascending colon polyp. The patient tolerated the procedure well. [facility] /[id number]
--- NOTE | 2021-07-11 10:47 | LETTER ---
07/11/2021 RE: SERENE MICHELE : 1955 Ivon Perdomo MD [facility], [place] [address] Perdomo: Ms. Serene Michele had colonoscopic examination done this morning. She tolerated the procedure well. I herewith send a copy of the endoscopy note and photographs for your review. Thank you. Sincerely, [facility] /[id number]
[2021-07-11 11:43] VITALS: BP 163/68; PULSE 69
== END 2021-07-11 09:13 | disposition home or self-care (01) ==
LOC: DL.ENDO 05:30
PROVIDERS: ATTEND Internal Medicine Gastroenterology
DX: D12.2 Benign neoplasm of ascending colon (principal); K59.00 Constipation, unspecified; E66.09 Other obesity due to excess calories; K21.9 Gastro-esophageal reflux disease without esophagitis; G25.81 Restless legs syndrome; G47.00 Insomnia, unspecified; G40.909 Epilepsy, unspecified, not intractable, without status epilepticus; E78.1 Pure hyperglyceridemia; I10 Essential (primary) hypertension; Z87.891 Personal history of nicotine dependence; Z90.49 Acquired absence of other specified parts of digestive tract; Z98.890 Other specified postprocedural states; Z68.36 Body mass index [BMI] 36.0-36.9, adult
CPT/HCPCS: 45385; J2250; J3010; J7042

== ENCOUNTER 2021-09-29 13:08 | Emergency (ER) | payer MEDICAID ==
[2021-09-29 13:27] VITALS: BP 156/113; PULSE 68
[2021-09-29] MEDS ORDERED: Sodium Chloride 0.9% 10 ML Syringe FLUSH PRN (13:29)
[2021-09-29] MEDS ORDERED: HYDROmorphone 0.5 MG/0.5 ML Syringe IVPUSH ONE (13:30)
--- NOTE | 2021-09-29 13:36 | EDM.PDOC ---
ED HPI GENERAL MEDICAL PROBLEM - General Chief Complaint: Head Injury Stated Complaint: AMBULANCE Time Seen by Provider: 09/29/21 13:31 Source of Information: Reports: Patient History Limitations: Reports: No Limitations - History of Present Illness INITIAL COMMENTS - FREE TEXT/NARRATIVE: 66 y/o F states she tripped over a rug and fell backwards onto carpet at her appartment building entrance. She does not know if she lost consciousness. c/o 8/10 head pain all over and c6 pain. Hx of multiple fractures. Had her R ankle xrayed this morning at clinic after falling a week ago but does not know the results. Has had multiple compression fractures of her T spine and subsequently always has T sine pain. After pt fell witness pushed pts life alert. EMS arrived and transported pt to ER and placed c-collar. No blood thinners. Denies vision prob, cp, db, cp, abd pn, new extremity pain, drugs, etoh. - Related Data Allergies Allergy/AdvReac Type Severity Reaction Status Date / Time carbamazepine [From Tegretol] Allergy Anaphylactic Verified 09/29/21 13:21 Shock epinephrine Allergy Itching Verified 09/29/21 13:21 gabapentin Allergy Numbness Verified 09/29/21 13:21 indomethacin Allergy Numbness Verified 09/29/21 13:21 phenytoin [From Dilantin] Allergy Other Verified 09/29/21 13:21 pregabalin [From Lyrica] Allergy Other Verified 09/29/21 13:21 primidone [From Mysoline] Allergy Dizziness Verified 09/29/21 13:21 Home Meds: Home Meds Losartan [Cozaar] 12.5 - 25 mg PO .12.5MGINAM, 25MG@HS 11/10/19 [History] OXcarbazepine [Oxcarbazepine] 1 tab PO BID 11/10/19 [History] diphenhydrAMINE [Benadryl] 25 mg PO Q6H 11/10/19 [History] Albuterol [Ventolin HFA] 2 puff INH BID 11/15/19 [History] Divalproex Sodium [Depakote] 500 mg PO BIDMEALS 11/15/19 [History] Cetirizine [ZyrTEC] 10 mg PO DAILY 07/05/21 [History] Cyclobenzaprine [Flexeril] 10 mg PO DAILY 07/05/21 [History] Diclofenac Sodium [Voltaren 1% Gel] 2 gm TOP QID PRN 07/05/21 [History] Fluticasone Propion/Salmeterol [Advair 250-50 Diskus] 1 each IH DAILY 07/05/21 [History] Hydrocortisone Valerate 60 gm TP TID 07/05/21 [History] Ipratropium/Albuterol Sulfate [Iprat-Albut 0.5-3(2.5) mg/3 ml] 3 ml IH QID 07/05/21 [History] Melatonin 3 mg PO DAILY 07/05/21 [History] Montelukast [Singulair] 10 mg PO DAILY 07/05/21 [History] hydrOXYzine HCL [Hydroxyzine HCl] 25 mg PO DAILY 07/05/21 [History] Pantoprazole Sodium [Protonix] 40 mg PO DAILY 07/10/21 [History] rOPINIRole [Requip] 0.25 mg PO BEDTIME 07/10/21 [History] traZODone HCl [Trazodone HCl] 150 - 300 mg PO BEDTIME 07/10/21 [History] Past Medical History HEENT History: Reports: Impaired Vision Other HEENT History: no teeth, not wearing dentures Cardiovascular History: Reports: Hypertension Respiratory History: Reports: Asthma, COPD Gastrointestinal History: Reports: Chronic Constipation, Chronic Diarrhea Genitourinary History: Reports: Renal Calculus 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: Musculoskeletal History: Reports: Fracture, Fibromyalgia Neurological History: Reports: Seizure Psychiatric History: Reports: PTSD, Other (See Below) Other Psychiatric History: manic depressive Endocrine/Metabolic History: Reports: None Hematologic History: Reports: None Immunologic History: Reports: None Oncologic (Cancer) History: Reports: None Dermatologic History: Reports: Eczema - Infectious Disease History Infectious Disease History: Reports: Chicken Pox - Past Surgical History Head Surgeries/Procedures: Reports: None HEENT Surgical History: Reports: Adenoidectomy, Oral Surgery, Tonsillectomy Cardiovascular Surgical History: Reports: None Respiratory Surgical History: Reports: None GI Surgical History: Reports: Appendectomy, Cholecystectomy, EGD, Hernia Repa ir/Other Female Surgical History: Reports: Hysterectomy Endocrine Surgical History: Reports: None Neurological Surgical History: Reports: None Musculoskeletal Surgical History: Reports: Other (See Below) Other Musculoskeletal Surgeries/Procedures:: surg to bilateral legs Dermatological Surgical History: Reports: Skin Biopsy Social & Family History - Family History Family Medical History: No Pertinent Family History - Tobacco Use Tobacco Use Status *Q: Never Tobacco User - Caffeine Use Caffeine Use: Reports: None - Recreational Drug Use Recreational Drug Use: No ED ROS GENERAL - Review of Systems Review Of Systems: Comprehensive ROS is negative, except as noted in HPI. ED EXAM, HEAD INJURY - Physical Exam Exam: See Below Text/Narrative:: Pt in c-collar from EMS. Exam Limited By: No Limitations General Appearance: Alert, No Apparent Distress Nexus Criteria: Posterior, Midline Cervical Tenderness. No: Evidence of Intoxication, Altered Level of Consciousness, Focal Neurological Deficit, Painful Distraction Injuries Eyes: Bilateral Eye: PERRL Ears: Normal External Exam, Normal Canal, Hearing Grossly Normal, Normal TMs Nose: Normal Inspection, Normal Mucousa, No Blood Throat/Mouth: Normal Inspection, Normal Lips, Normal Teeth, Normal Gums, Normal Oropharynx, Normal Voice, No Airway Compromise Neck: Other (point tenderness c6) Respiratory: No Respiratory Distress, Lungs Clear, Normal Breath Sounds, No Accessory Muscle Use, Chest Non-Tender Cardiovascular: Normal Peripheral Pulses, Regular Rate, Rhythm, No Edema, No Gallop, No JVD, No Murmur, No Rub GI/Abdominal Exam: Soft, Non-Tender, No Distention (Female) Exam: Deferred Rectal (Female) Exam: Deferred Back Exam: Full Range of Motion, Normal Inspection, NT Extremities: Normal Inspection, Normal Range of Motion, No Pedal Edema, Normal Capillary Refill, Other (R ankle tender from previous injury but has full range of motion.) Skin: Normal Color, Warm/Dry Course - Vital Signs Last Recorded V/S: Last Vital Signs Temp 97.1 F 09/29/21 13:22 Pulse 68 09/29/21 13:22 Resp 20 09/29/21 13:22 BP 156/113 H 09/29/21 13:22 Pulse Ox 94 L 09/29/21 13:22 - Orders/Labs/Meds Orders: Active Orders 24 hr Category Date Time Status Peripheral IV Care [RC] . DIRECTED Care 09/29/21 13:30 Active CBC WITH AUTO DIFF [HEME] Stat Lab 09/29/21 14:00 Results MANUAL DIFFERENTIAL QA/NC [HEME] Stat Lab 09/29/21 14:00 Results Sodium Chloride 0.9% [Saline Flush] Med 09/29/21 13:29 Active 10 ml FLUSH ASDIRECTED PRN Peripheral IV Insertion Adult [OM.PC] Routine Oth 09/29/21 13:28 Ordered Medication Orders Sodium Chloride (Sodium Chloride 0.9% 10 Ml Syringe) 10 ml FLUSH ASDIRECTED PRN PRN Reason: Keep Vein Open Last Admin: 09/29/21 13:48 Dose: 10 ml Documented by: [id number] Labs: Laboratory Tests 09/29/21 09/29/21 Range/Units 14:00 14:00 WBC 5.3 (5.0-10.0) 10^3/uL RBC 4.26 (4.2-5.4) 10^6/uL Hgb 13.2 (12.0-16.0) g/dL Hct 41.3 (37.0-47.0) % MCV 96.9 (80-100) fL MCH 31.0 (27.0-34.0) pg MCHC 32.0 L (33.0-35.0) g/dL Plt Count 121 L D (150-450) 10^3/uL Neut % (Auto) 63.0 (42.2-75.2) % Lymph % (Auto) 23.0 (20.5-50.1) % [place] % (Auto) 12.3 H (2-8) % Eos % (Auto) 1.5 (1.0-3.0) % Baso % (Auto) 0.2 (0.0-1.0) % Add Manual Diff Yes Sodium 143 (136-145) mmol/L Potassium 4.1 (3.5-5.1) mmol/L Chloride 106 (98-107) mmol/L Carbon Dioxide 28 (21-32) mmol/L Anion Gap 13.1 H (7-13) mEq/L BUN 19 H (7-18) mg/dL Creatinine 0.76 (0.55-1.02) mg/dL Est Cr Clr Drug Dosing 64.58 mL/min Estimated GFR (MDRD) > 60 BUN/Creatinine Ratio 25.0 (No establ ref range) Glucose 95 (70-99) mg/dL Calcium 8.7 (8.5-10.1) mg/dL Total Bilirubin 0.2 (0.2-1.0) mg/dL AST 11 L (15-37) U/L ALT 9 L (14-59) U/L Alkaline Phosphatase 53 (46-116) U/L Total Protein 6.1 L (6.4-8.2) g/dL Albumin 3.0 L (3.4-5.0) g/dL Globulin 3.1 Albumin/Globulin Ratio 0.97 Meds: Medications Generic Name Dose Route Start Last Admin Trade Name Freq PRN Reason Stop Dose Admin Sodium Chloride 10 ml 09/29/21 13:29 09/29/21 13:48 Sodium Chloride 0.9% 10 Ml Syringe FLUSH 10 ml ASDIRECTED PRN Administration Keep Vein Open Discontinued Medications Generic Name Dose Route Start Last Admin Trade Name Freq PRN Reason Stop Dose Admin Hydromorphone HCl 0.5 mg 09/29/21 13:30 09/29/21 13:48 Hydromorphone 0.5 Mg/0.5 Ml Syringe IVPUSH 09/29/21 13:31 0.5 mg ONETIME ONE Administration Iopamidol 100 ml 09/29/21 14:43 Iopamidol 755 Mg/Ml 100 Ml Bottle IVPUSH 09/29/21 14:44 ONETIME ONE - Re-Assessments/Exams Free Text/Narrative Re-Assessment/Exam: 09/29/21 14:35 I discussed the pts lab, exam and imaging with her and informed her of the incidental finding on the cervical CT. A ct chest with contrast was completed that showed no thoracic dissection. Incidental finding of lung nodules wer found on the CT as well as thyroid nodule that warrant outpatient follow up at a later date. I discussed these findings and informed her to follow up in clinic about these findings. Departure - Departure Time of Disposition: 14:37 Disposition: Home, Self-Care 01 Condition: Fair Clinical Impression: Lung nodules, Thyroid nodule Fall Qualifiers: Encounter type: initial encounter Qualified Code(s): W19.XXXA - Unspecified fall, initial encounter - Discharge Information *PRESCRIPTION DRUG MONITORING PROGRAM REVIEWED*: Not Applicable *COPY OF PRESCRIPTION DRUG MONITORING REPORT IN PATIENT KATINA: Not Applicable Forms: ED Department Discharge Additional Instructions: Follow up in clinic about the lung nodules found on your chest CT as well as the tyroid nodule found on your CT Take tylenol and ibuprofen for pain as needed. If any new symptoms or concerns develop contact your primary care facility or return to the ER. Sepsis Event Note (ED) - Evaluation Sepsis Screening Result: No Definite Risk - Focused Exam Vital Signs: Vital Signs Temp Pulse Resp BP Pulse Ox 09/29/21 13:22 97.1 F 68 20 156/113 H 94 L - My Orders Last 24 Hours: My Active Orders 09/29/21 13:28 Peripheral IV Insertion Adult [OM.PC] Routine 09/29/21 13:29 Sodium Chloride 0.9% [Saline Flush] 10 ml FLUSH ASDIRECTED PRN 09/29/21 13:30 Peripheral IV Care [RC] . DIRECTED 09/29/21 14:00 CBC WITH AUTO DIFF [HEME] Stat MANUAL DIFFERENTIAL QA/NC [HEME] Stat - Assessment/Plan Last 24 Hours: My Active Orders 09/29/21 13:28 Peripheral IV Insertion Adult [OM.PC] Routine 09/29/21 13:29 Sodium Chloride 0.9% [Saline Flush] 10 ml FLUSH ASDIRECTED PRN 09/29/21 13:30 Peripheral IV Care [RC] . DIRECTED 09/29/21 14:00 CBC WITH AUTO DIFF [HEME] Stat MANUAL DIFFERENTIAL QA/NC [HEME] Stat
[2021-09-29 14:26] LABS: ANION GAP 13.1 mEq/L (7-13); CHLORIDE,CL 106 mmol/L (98-107); SODIUM,NA 143 mmol/L (136-145)
--- NOTE | 2021-09-29 14:38 | CT ---
EXAMINATION: Head wo Cont SEX: Female AGE: 66 years CLINICAL HISTORY: 66-year-old female injured in fall (head pain). Scan technique: Volume acquisition of data emergency unenhanced CT scan of the head and brain obtained with the patient lying supine on the Siemens multi slice scanner [place], [place]. All data archived PACS system for storage, reformatting axial/sagittal/coronal planes and study (bone/soft tissue windows). Interpretation: 1. Generalized atrophy pattern symmetric and consistent with age. 2. Multiple tiny areas of decreased attenuation scattered throughout the periventricular white matter both cerebral hemispheres characteristic of microvascular ischemic disease (infarct). No encephalomalacia. No arachnoid cyst. 3. Uniformly thick bony calvarium. No sign of skull fracture, underlying brain contusion or abnormal extracerebral/intracranial epidural or subdural hematoma. 4. Positional (rotation) artifacts but normal cerebellum and brainstem. 5. No sign of acute intracerebral, intraventricular or subarachnoid bleed. 6. No supratentorial or posterior fossa mass lesion. 7. No hydrocephalus. CONCLUSION: Multi-infarct ischemic changes. Atrophy. No intracranial mass, hydrocephalus, skull fracture or bleed. INTERPRETATION: 1. CONCLUSION:
[2021-09-29] MEDS ORDERED: Iopamidol 755 Mg/ML 100 ML Bottle IVPUSH ONE (14:43)
--- NOTE | 2021-09-29 14:48 | CT ---
EXAMINATION: Cervical Spine wo Cont SEX: Female AGE: 66 years CLINICAL HISTORY: 66-year-old female with repeated falls, head pain, "multi-infarct ischemic disease", and C6 pain. Scan technique: Volume acquisition of data emergency unenhanced CT scan of the cervical spine obtained with the patient lying supine on the Siemens multislice scanner [place], [place]. All data archived in the PACS system for storage, reformatting axial/sagittal/coronal planes and study. Interpretation: Negative C-spine for age. 1. Homogeneous normal bone mineral density consistent with age and gender. 2. No congenital abnormalities. No pathologic skeletal lesion. No cervical rib anomalies. 3. Chronic reactive arthritic changes atlantoaxial joint. 4. Some marginal spondylosis mid cervical spine. 5. No sign of prevertebral soft tissue swelling, cervical fracture, spondylolisthesis or jumped locked facets. Note: Sharp line through, anterior margin, arch of the unenhanced thoracic aorta could represent a focal dissection. (Neck pain) This observation (axial scan slices numbers [id number]) was discussed with emergency department provider (Vinod) and a contrast enhanced CT scan of the upper thoracic aorta suggested.
--- NOTE | 2021-09-29 15:52 | CT ---
PROCEDURE INFORMATION: Exam: CT Chest With Contrast; Diagnostic Exam date and time: 09/29/2021 2:52 PM Age: 66 years old Clinical indication: Pain; Additional info: Incindental finding on cervical sine CT pos dis TECHNIQUE: Imaging protocol: Diagnostic computed tomography of the chest with contrast. Radiation optimization: All CT scans at this facility use at least one of these dose optimization techniques: automated exposure control; mA and/or kV adjustment per patient size (includes targeted exams where dose is matched to clinical indication); or iterative reconstruction. Contrast material: ISOVUE 370; Contrast volume: 75 ml; Contrast route: INTRAVENOUS (IV); COMPARISON: No relevant prior studies available. FINDINGS: Thyroid: Partially visualized mildly enlarged thyroid gland. Consider correlation with nonemergent thyroid ultrasound. Trachea: Patent. Bronchial tree: Patent. Lungs: Nonobstructive filling defect within 1 of the right upper lobe proximal segmental branches. This is best seen on image 116 series 5 and image 83 series 7. No other filling defects noted within the pulmonary arterial system. COPD related lung changes are appreciated. Severe centrilobular emphysematous changes are present. Scarring and atelectasis in the bilateral lung bases. Mild interstitial prominence/interlobular septal thickening at the bilateral upper lobes. Scattered pulmonary nodules are appreciated. For example, a 3 mm nodule is seen in the right lower lobe on image 244 series 5. As another example, a 4 mm nodule is seen in the right lower lobe on image 219 series 5. As another example, a 6 mm nodule is seen in the right lower lobe on image 167 series 5. As another example, a 5 mm nodule is seen in the left lower lobe on image 167 series 5. As a last example, a 4 mm nodule is seen in the left lower lobe on image 152 series 5. 6 mm nodule abutting on the right minor fissure, most compatible with a perifissural nodule/intrapulmonary lymph node. This is of no concern. There is diffuse bilateral segmental bronchial wall thickening. Pleural spaces: Unremarkable. No pneumothorax. No pleural effusion. Heart: There is calcification of the aortic valve annulus. There is moderate atherosclerotic calcification of the coronary arteries. There is calcification of the mitral valve annulus. Heart is of normal size and morphology. No pericardial thickening or effusion. Esophagus: Courses normally through the posterior mediastinum. Pulmonary arteries: The pulmonary arteries demonstrate mild central enlargement, consistent with mild pulmonary hypertension. Aorta: Aneurysmal dilation of the mid ascending thoracic aorta measuring 4.7 cm. The aorta demonstrates mild atherosclerotic calcification. No acute pathology in the aorta. Lymph nodes: No other concerning thoracic adenopathy is appreciated by CT size criteria. Diaphragm: A large hiatal hernia is present. Gallbladder and bile ducts: Prior cholecystectomy. Bones/joints: No acute skeletal pathology. Moderate multilevel degenerative changes of the spine, as manifested by multilevel anterior osteophytes and multilevel decrease in intervertebral disc space. Chronic midline compression injuries of T7 and T8. Chronic compression fracture of T12 with approximately 50% loss in vertebral body height. Soft tissues: No acute body wall soft tissue findings. Other findings: The visualized intra-abdominal structures demonstrate no acute findings. IMPRESSION: 1. Findings in 1 of the right upper lobe proximal pulmonary arterial segmental branches is felt to be related to artifact, specifically streak artifact. Differential would include a tiny nonobstructing pulmonary embolus, however felt less likely. Follow-up is recommended if clinically warranted. 2. No other pulmonary emboli are appreciated. 3. Moderate to severe COPD and centrilobular emphysema. 4. Chronic bronchitis. 5. Scattered pulmonary nodules measuring up to 6 mm which are nonspecific. For patients at low risk (minimal or absent history of smoking and of other known risk factors), recommend CT Chest at 3-6 months, then consider CT Chest at 18-24 months. For patients at high risk (history of smoking or of other known risk factors), recommend CT Chest at 3-6 months, then CT Chest at 18-24 months. (Reference: Kathrin) 6. Chronic lung changes without significant acute pulmonary pathology appreciated in this examination. 7. Chronic/incidental findings as above. REFERENCES: Kathrin Carpenter, et al. Guidelines for Management of Incidental Pulmonary Nodules Detected on CT Images: From the Fleischner Society 2017. Radiology. 2017;284(1):228-243.
== END 2021-09-29 16:30 | disposition home or self-care (01) ==
LOC: DL.ED 13:08
DX: E04.1 Nontoxic single thyroid nodule (principal); R91.1 Solitary pulmonary nodule; J44.9 Chronic obstructive pulmonary disease, unspecified; I10 Essential (primary) hypertension; Z88.4 Allergy status to anesthetic agent; Z88.8 Allergy status to other drugs, medicaments and biological substances; Z79.899 Other long term (current) drug therapy
CPT/HCPCS: 36415; 70450; 71260; 72125; 80053; 85025; 96374; 99284; J1170

== ENCOUNTER 2022-04-27 16:23 | Emergency (ER) | payer MEDICAID ==
[2022-04-27] MEDS ORDERED: Ondansetron 4 MG Tab.DIS PO ONE (16:24)
[2022-04-27] MEDS ORDERED: Sodium Chloride 0.9% 10 ML Syringe FLUSH PRN (17:16)
[2022-04-27] MEDS ORDERED: Sodium Chloride 0.9% 1,000 ML IV ONE (17:16)
[2022-04-27] MEDS ORDERED: Ondansetron 4 MG/2 ML SDV IVPUSH ONE ×2 (17:17→21:09)
[2022-04-27 17:57] LABS: ANION GAP 12.4 mEq/L (7-13); CHLORIDE,CL 104 mmol/L (98-107); SODIUM,NA 141 mmol/L (136-145)
[2022-04-27 18:08] LABS: ESTIMATED GFR 80 mL/min (>=60)
[2022-04-27] MEDS ORDERED: Iopamidol 612 MG/ML 100 ML Bottle IVPUSH ONE (18:39)
[2022-04-27] MEDS ORDERED: Ondansetron 4 MG Tab.DIS ONE (21:22)
[2022-04-27 21:28] VITALS: BP 139/91; PULSE 73
== END 2022-04-27 21:50 | disposition home or self-care (01) ==
LOC: DL.ED 16:23
DX: K52.9 Noninfective gastroenteritis and colitis, unspecified (principal); J44.9 Chronic obstructive pulmonary disease, unspecified; I10 Essential (primary) hypertension; Z86.16 Personal history of COVID-19; Z88.1 Allergy status to other antibiotic agents; Z88.5 Allergy status to narcotic agent; Z88.8 Allergy status to other drugs, medicaments and biological substances; Z90.49 Acquired absence of other specified parts of digestive tract; Z90.710 Acquired absence of both cervix and uterus; Z79.899 Other long term (current) drug therapy; Z20.822 Contact with and (suspected) exposure to COVID-19
CPT/HCPCS: 36415; 74018; 74177; 80053; 83605; 85025; 86140; 87635; 96361; 96374; 96376; 99284; A9270; J2405; J3490; J7030; Q9967; U0002

== ENCOUNTER 2022-05-27 17:26 | Observation (INO) | payer MEDICAID ==
[2022-05-27] MEDS ORDERED: Sodium Chloride 0.9% 10 ML Syringe FLUSH PRN (17:45)
[2022-05-27 18:41] LABS: CORONAVIRUS COVID-19 NAA NEGATIVE (NEGATIVE); RESPIRATORY SYNCYTIAL VIR NAA NEGATIVE (NEGATIVE)
[2022-05-27] MEDS ORDERED: Albuterol/Ipratropium 3.0-0.5 MG/3 ML Neb Soln NEB ONE (18:49)
[2022-05-27] MEDS ORDERED: methylPREDNISolone Sodium Succinate 125 MG/2 ML SDV IVPUSH ONE (18:49)
[2022-05-27 19:11] LABS: ANION GAP 12.4 mEq/L (7-13); CHLORIDE,CL 100 mmol/L (98-107); SODIUM,NA 137 mmol/L (136-145)
[2022-05-27 19:32] LABS: ESTIMATED GFR 90 mL/min (>=60)
[2022-05-27] MEDS ORDERED: Albuterol/Ipratropium 3.0-0.5 MG/3 ML Neb Soln NEB PRN (20:23)
[2022-05-27] MEDS ORDERED: Ondansetron 4 MG Tab.DIS PO PRN (20:23)
[2022-05-27] MEDS ORDERED: Acetaminophen 325 MG Tab PO PRN (20:23)
[2022-05-27] MEDS ORDERED: Polyethylene Glycol 3350 Powder 17 GM Packet PO PRN (20:23)
[2022-05-27] MEDS ORDERED: Docusate Sodium 100 MG Cap PO PRN (20:23)
[2022-05-27] MEDS ORDERED: Ondansetron 4 MG/2 ML SDV IVPUSH PRN (20:23)
[2022-05-27] MEDS ORDERED: Montelukast 10 MG Tab PO SCH (21:30)
[2022-05-27] MEDS ORDERED: rOPINIRole 2 MG Tab PO SCH (21:45)
[2022-05-27] MEDS: Divalproex Sodium Delayed-Release 250 MG Tab.CR PO SCH (21:55)
[2022-05-27] MEDS: Albuterol/Ipratropium 3.0-0.5 MG/3 ML Neb Soln NEB SCH (21:55)
[2022-05-27] MEDS: Heparin Sodium 5,000 Units/ML Vial SUBCUT SCH (21:56)
[2022-05-27] MEDS: OXcarbazepine 300 MG Tab PO SCH (22:59)
[2022-05-28] MEDS: methylPREDNISolone Sodium Succinate 40 MG/1 ML SDV IVPUSH SCH ×2 (01:41→09:07)
[2022-05-28] MEDS: Albuterol/Ipratropium 3.0-0.5 MG/3 ML Neb Soln NEB SCH ×4 (01:46→12:57)
[2022-05-28] MEDS: Heparin Sodium 5,000 Units/ML Vial SUBCUT SCH (05:19)
[2022-05-28] MEDS ORDERED: Pantoprazole 40 MG Tab.CR PO SCH (06:00)
[2022-05-28] MEDS ORDERED: Divalproex Sodium Delayed-Release 250 MG Tab.CR PO SCH (08:00)
[2022-05-28 08:14] VITALS: BP 154/72
[2022-05-28] MEDS ORDERED: Fluconazole 100 MG Tab PO ONE (08:34)
[2022-05-28] MEDS ORDERED: Melatonin 3 MG Tab PO SCH (09:00)
[2022-05-28] MEDS ORDERED: Non-Formulary Medication 1 Each (Cetirizine [Zyrtec] 10 MG Tablet) PO SCH (09:00)
[2022-05-28] MEDS ORDERED: Losartan 25 MG Tab PO SCH (09:00)
[2022-05-28] MEDS: Divalproex Sodium Delayed-Release 250 MG Tab.CR PO SCH (09:45)
[2022-05-28] MEDS: OXcarbazepine 300 MG Tab PO SCH (09:47)
[2022-05-28 13:03] VITALS: PULSE 95
== END 2022-05-28 15:40 | disposition home or self-care (01) ==
LOC: DL.ED 17:26 → DL.MS 20:05
PROVIDERS: ADMIT Hospitalist; ATTEND Hospitalist
DX: J44.1 Chronic obstructive pulmonary disease with (acute) exacerbation (principal); J96.01 Acute respiratory failure with hypoxia; I10 Essential (primary) hypertension; G40.909 Epilepsy, unspecified, not intractable, without status epilepticus; Z99.81 Dependence on supplemental oxygen; Z88.8 Allergy status to other drugs, medicaments and biological substances; Z79.899 Other long term (current) drug therapy; Z98.890 Other specified postprocedural states; Z86.16 Personal history of COVID-19; Z90.49 Acquired absence of other specified parts of digestive tract; Z87.891 Personal history of nicotine dependence; Z20.822 Contact with and (suspected) exposure to COVID-19
CPT/HCPCS: 0241U; 36415; 71045; 80053; 80164; 83605; 83880; 84484; 85025; 87040; 93005; 94640; 96372; 96374; 96376; 99285; A9270; G0378; J1644; J2920; J2930; J3490; 93010; 99217; 99220; 99284; J7620-GY

== ENCOUNTER 2022-10-08 19:55 | Emergency (ER) | payer MEDICARE, MEDICAID ==
[2022-10-08] MEDS ORDERED: Albuterol/Ipratropium 3.0-0.5 MG/3 ML Neb Soln INH ONE (19:56)
[2022-10-08 21:00] LABS: CORONAVIRUS COVID-19 NAA NEGATIVE (NEGATIVE); RESPIRATORY SYNCYTIAL VIR NAA NEGATIVE (NEGATIVE)
[2022-10-08 21:19] LABS: ANION GAP 9.3 mEq/L (7-13)
[2022-10-08] MEDS ORDERED: Albuterol/Ipratropium 3.0-0.5 MG/3 ML Neb Soln NEB ONE (21:27)
[2022-10-08] MEDS: Sodium Chloride 0.9% 10 ML Syringe FLUSH SCH ×3 (21:45→22:03)
[2022-10-08] MEDS ORDERED: methylPREDNISolone Sodium Succinate 125 MG/2 ML SDV IVPUSH ONE (21:56)
[2022-10-08] MEDS ORDERED: Albuterol/Ipratropium 3.0-0.5 MG/3 ML Neb Soln ONE (22:01)
[2022-10-08 22:14] VITALS: BP 140/80; PULSE 65
== END 2022-10-08 22:19 | disposition home or self-care (01) ==
LOC: DL.ED 19:55
DX: J44.1 Chronic obstructive pulmonary disease with (acute) exacerbation (principal); I10 Essential (primary) hypertension; K21.9 Gastro-esophageal reflux disease without esophagitis; M79.7 Fibromyalgia; E66.9 Obesity, unspecified; Z68.39 Body mass index [BMI] 39.0-39.9, adult; Z88.8 Allergy status to other drugs, medicaments and biological substances; Z88.6 Allergy status to analgesic agent; Z88.1 Allergy status to other antibiotic agents; Z79.899 Other long term (current) drug therapy; Z20.822 Contact with and (suspected) exposure to COVID-19
CPT/HCPCS: 0241U; 36415; 71046; 80053; 83605; 84484; 85025; 85379; 87040; 93005; 94640; 96374; 99285; J2930; J3490; J7620-GY

== ENCOUNTER 2022-12-11 08:32 | Emergency (ER) | payer MEDICARE, MEDICAID ==
[2022-12-11 09:56] LABS: ANION GAP 11.6 mEq/L (7-13); CHLORIDE,CL 105 mmol/L (98-107); SODIUM,NA 141 mmol/L (136-145)
[2022-12-11 09:57] LABS: ESTIMATED GFR 97 mL/min (>=60)
[2022-12-11 10:13] LABS: CORONAVIRUS COVID-19 NAA NEGATIVE (NEGATIVE)
[2022-12-11 11:03] VITALS: BP 116/92; PULSE 66
== END 2022-12-11 10:37 | disposition home or self-care (01) ==
LOC: DL.ED 08:32
DX: R07.9 Chest pain, unspecified (principal); J44.9 Chronic obstructive pulmonary disease, unspecified; I10 Essential (primary) hypertension; E66.9 Obesity, unspecified; Z68.41 Body mass index [BMI] 40.0-44.9, adult; Z88.4 Allergy status to anesthetic agent; Z88.1 Allergy status to other antibiotic agents; Z79.899 Other long term (current) drug therapy; Z86.16 Personal history of COVID-19; Z20.822 Contact with and (suspected) exposure to COVID-19
CPT/HCPCS: 0240U; 36415; 71045; 80053; 83605; 83880; 84484; 85025; 85379; 85610; 93005; 99285

== ENCOUNTER 2023-04-07 12:36 | Emergency (ER) | payer MEDICARE, MEDICAID ==
[2023-04-07 13:03] VITALS: BP 142/91; PULSE 67
[2023-04-07] MEDS: Albuterol/Ipratropium 3.0-0.5 MG/3 ML Neb Soln ONE (13:26)
[2023-04-07 13:32] LABS: HEMATOCRIT 41.7 % (37.0-47.0); HEMOGLOBIN 13.3 g/dL (12.0-16.0); MEAN CORPUSCULAR HEMOGLOBIN 31.1 pg (27.0-34.0); MEAN CORPUSCULAR HGB CONC 31.9 g/dL (33.0-35.0); MEAN CORPUSCULAR VOLUME 97.7 fL (80-100); PLATELET COUNT,PLT 183 10^3/uL (150-450); RED BLOOD CELL COUNT 4.27 10^6/uL (4.2-5.4); WHITE BLOOD CELL COUNT,WBC 7.6 10^3/uL (5.0-10.0)
[2023-04-07 13:36] LABS: BASOPHILS PERCENT AUTO 0.3 % (0.0-1.0); EOSINOPHILS PERCENT AUTO 3.2 % (1.0-3.0); LYMPHOCYTES PERCENT AUTO 17.9 % (20.5-50.1); MONOCYTES PERCENT AUTO 12.3 % (2-8); NEUTROPHILS PERCENT AUTO 66.3 % (42.2-75.2)
[2023-04-07 13:45] LABS: ALBUMIN 3.1 g/dL (3.4-5.0); ANION GAP 9.9 mEq/L (7-13); BILIRUBIN TOTAL 0.3 mg/dL (0.2-1.0); BUN/CREATININE RATIO 19.2 (No establ ref range); C-REACTIVE PROTEIN 0.7 mg/dL (0.0-0.9); CALCIUM 8.9 mg/dL (8.5-10.1); CREATININE 0.99 mg/dL (0.55-1.02); EST CRCL DRUG DOSING (CG) 42.75 mL/min; LACTIC ACID 1.1 mmol/L (0.4-2.0); POTASSIUM,K 4.9 mmol/L (3.5-5.1); PROTEIN TOTAL,TP 6.5 g/dL (6.4-8.2)
[2023-04-07 13:47] LABS: A/G RATIO 0.91
[2023-04-07 13:48] LABS: BAND PERCENT MAN 6 %; EOSINOPHILS PERCENT MAN 2 % (1-3); LYMPHOCYTES PERCENT MAN 15 % (20-50); MONOCYTES PERCENT MAN 6 % (2-8); SEG NEUTROPHILS PERCENT MAN 71 % (42-75)
[2023-04-07] MEDS: predniSONE 20 MG Tab PO ONE (13:59)
[2023-04-07] MEDS: Acetaminophen 500 MG Tab PO ONE (14:37)
[2023-04-07 15:43] LABS: AMPHETAMINES,URINE NEGATIVE (NEGATIVE); BARBITURATES,URINE NEGATIVE (NEGATIVE); BENZODIAZEPINE,URINE NEGATIVE (NEGATIVE); MDMA (ECSTASY), URINE NEGATIVE (NEGATIVE); METHADONE,URINE NEGATIVE (NEGATIVE); METHAMPHETAMINES,URINE NEGATIVE (NEGATIVE); OPIATES,URINE NEGATIVE (NEGATIVE); OXYCODONE,URINE NEGATIVE (NEGATIVE); PHENCYCLIDINE,URINE NEGATIVE (NEGATIVE); TCA,URINE POSITIVE (NEGATIVE)
[2023-04-07 15:57] LABS: APPEARANCE,URINE CLEAR (CLEAR); BILIRUBIN,URINE NEGATIVE (NEGATIVE); COLOR,URINE YELLOW (YELLOW); GLUCOSE,URINE NEGATIVE (NEGATIVE); KETONES,URINE NEGATIVE (NEGATIVE); LEUKOCYTE ESTERASE,URINE NEGATIVE (NEGATIVE); NITRITE,URINE NEGATIVE (NEGATIVE); OCCULT BLOOD,URINE TRACE-INTACT (NEGATIVE); PH,URINE 7.5 (5.0-9.0); PROTEIN,URINE NEGATIVE (NEGATIVE)
[2023-04-07 16:11] LABS: BACTERIA,URINE RARE /HPF (0-FEW/HPF); EPITHELIAL CELLS,URINE RARE /HPF (NOT SEEN); RBC,URINE 0-5 /HPF (0-5); WBC,URINE NOT SEEN /HPF (0-5/HPF)
== END 2023-04-07 16:23 | disposition home or self-care (01) ==
LOC: DL.ED 12:36
DX: J44.1 Chronic obstructive pulmonary disease with (acute) exacerbation (principal); K21.9 Gastro-esophageal reflux disease without esophagitis; I10 Essential (primary) hypertension; E66.9 Obesity, unspecified; Z68.41 Body mass index [BMI] 40.0-44.9, adult; Z86.16 Personal history of COVID-19; Z88.1 Allergy status to other antibiotic agents; Z88.4 Allergy status to anesthetic agent; Z88.8 Allergy status to other drugs, medicaments and biological substances; Z79.899 Other long term (current) drug therapy; Z87.891 Personal history of nicotine dependence; Z20.822 Contact with and (suspected) exposure to COVID-19
CPT/HCPCS: 36415; 71045; 80053; 80305; 81001; 83605; 83690; 84484; 85025; 85379; 86140; 93005; 93010; 94640; 99284; 99285; A9270; J7512; U0002; J7620-GY

== ENCOUNTER 2023-05-03 10:06 | Inpatient (IN) | payer MEDICARE, MEDICAID ==
[2023-05-03] MEDS ORDERED: Sodium Chloride 0.9% 10 ML Syringe FLUSH PRN (10:29)
[2023-05-03] MEDS ORDERED: Albuterol/Ipratropium 3.0-0.5 MG/3 ML Neb Soln NEB ONE ×2 (10:31→13:04)
[2023-05-03] MEDS ORDERED: methylPREDNISolone Sodium Succinate 125 MG/2 ML SDV IVPUSH ONE (10:31)
[2023-05-03 10:59] LABS: BASOPHILS PERCENT AUTO 0.3 % (0.0-1.0); EOSINOPHILS PERCENT AUTO 4.2 % (1.0-3.0); HEMATOCRIT 41.8 % (37.0-47.0); HEMOGLOBIN 13.4 g/dL (12.0-16.0); LYMPHOCYTES PERCENT AUTO 17.7 % (20.5-50.1); MEAN CORPUSCULAR HEMOGLOBIN 31.4 pg (27.0-34.0); MEAN CORPUSCULAR HGB CONC 32.1 g/dL (33.0-35.0); MEAN CORPUSCULAR VOLUME 97.9 fL (80-100); MONOCYTES PERCENT AUTO 19.4 % (2-8); NEUTROPHILS PERCENT AUTO 58.4 % (42.2-75.2); PLATELET COUNT,PLT 222 10^3/uL (150-450); RED BLOOD CELL COUNT 4.27 10^6/uL (4.2-5.4); WHITE BLOOD CELL COUNT,WBC 5.9 10^3/uL (5.0-10.0)
[2023-05-03 11:20] LABS: B-TYPE NATRIURETIC PEPTIDE,BNP 721 pg/ml (0-100)
[2023-05-03 11:21] LABS: ALANINE AMINOTRANSFERASE,ALT 10 U/L (14-59); ALBUMIN 2.8 g/dL (3.4-5.0); ALKALINE PHOSPHATASE 47 U/L (46-116); ANION GAP 11.5 mEq/L (7-13); ASPARTATE AMNIOTRANSFERASE,AST 13 U/L (15-37); BILIRUBIN TOTAL 0.4 mg/dL (0.2-1.0); BLOOD UREA NITROGEN,BUN 14 mg/dL (7-18); BUN/CREATININE RATIO 14.4 (No establ ref range); C-REACTIVE PROTEIN 3.9 mg/dL (0.0-0.9); CALCIUM 8.9 mg/dL (8.5-10.1); CARBON DIOXIDE,CO2 31 mmol/L (21-32); CHLORIDE,CL 101 mmol/L (98-107); CREATININE 0.97 mg/dL (0.55-1.02); GLUCOSE RANDOM 101 mg/dL (70-99); POTASSIUM,K 4.5 mmol/L (3.5-5.1); PROTEIN TOTAL,TP 6.5 g/dL (6.4-8.2); SODIUM,NA 139 mmol/L (136-145)
[2023-05-03 11:22] LABS: LACTIC ACID 1.2 mmol/L (0.4-2.0)
[2023-05-03 11:23] LABS: A/G RATIO 0.76; ESTIMATED GFR 65 mL/min (>=60)
[2023-05-03] MEDS ORDERED: Iopamidol 755 Mg/ML 100 ML Bottle IVPUSH ONE (11:27)
[2023-05-03] MEDS ORDERED: cefTRIAXone 1 GM Vial IVPUSH ONE (13:05)
[2023-05-03 13:49] LABS: APPEARANCE,URINE CLEAR (CLEAR); BILIRUBIN,URINE NEGATIVE (NEGATIVE); COLOR,URINE YELLOW (YELLOW); GLUCOSE,URINE NEGATIVE (NEGATIVE); KETONES,URINE TRACE (NEGATIVE); LEUKOCYTE ESTERASE,URINE NEGATIVE (NEGATIVE); NITRITE,URINE NEGATIVE (NEGATIVE); OCCULT BLOOD,URINE MODERATE (NEGATIVE); PH,URINE 7.5 (5.0-9.0); PROTEIN,URINE NEGATIVE (NEGATIVE)
[2023-05-03 13:59] LABS: BACTERIA,URINE FEW /HPF (0-FEW/HPF); EPITHELIAL CELLS,URINE RARE /HPF (NOT SEEN); MUCUS,URINE RARE /LPF (NOT SEEN); WBC,URINE 0-5 /HPF (0-5/HPF)
[2023-05-03 14:00] LABS: AMORPHOUS SEDIMENT,URINE RARE /HPF (NOT SEEN)
[2023-05-03] MEDS ORDERED: Ondansetron 4 MG/2 ML SDV IVPUSH PRN (17:25)
[2023-05-03] MEDS ORDERED: Magnesium Hydroxide 400 MG/5 ML Susp 30 ML Cup PO PRN (17:25)
[2023-05-03] MEDS ORDERED: Sennosides/Docusate Sodium 50-8.6 MG Tab PO PRN (17:25)
[2023-05-03] MEDS ORDERED: Acetaminophen 325 MG Tab PO PRN (17:25)
[2023-05-03] MEDS ORDERED: Bisacodyl 5 MG Tab PO PRN (17:25)
[2023-05-03] MEDS ORDERED: Polyethylene Glycol 3350 Powder 17 GM Packet PO PRN (17:25)
[2023-05-03] MEDS ORDERED: HYDROmorphone 0.5 MG/0.5 ML Syringe IVPUSH PRN (17:25)
[2023-05-03] MEDS ORDERED: Albuterol 6.7 GM Inhaler INH PRN (17:25)
[2023-05-03] MEDS ORDERED: Non-Formulary Medication 1 Each (Alendronate Sodium [Alendronate Sodium] 70 MG Tablet) PO SCH (17:30)
[2023-05-03] MEDS ORDERED: 50% Dextrose in Water 50 ML Syringe IVPUSH PRN (17:32)
[2023-05-03] MEDS ORDERED: Glucagon,Human Recombinant 1 MG Vial IM PRN (17:32)
[2023-05-03] MEDS: methylPREDNISolone Sodium Succinate 125 MG/2 ML SDV IVPUSH SCH (18:24)
[2023-05-03] MEDS: Pantoprazole 40 MG Tab.CR PO SCH (18:24)
[2023-05-03] MEDS: Cyclobenzaprine 10 MG Tab PO SCH (21:55)
[2023-05-03] MEDS: Formoterol/Mometasone 200-5 MCG 8.8 GM Inhaler IH SCH (21:55)
[2023-05-03] MEDS: diphenhydrAMINE 25 MG Tab PO PRN (21:56)
[2023-05-03] MEDS: Divalproex Sodium Delayed-Release 250 MG Tab.CR PO SCH (21:56)
[2023-05-03] MEDS: rOPINIRole 2 MG Tab PO SCH (21:56)
[2023-05-03] MEDS: OXcarbazepine 300 MG Tab PO SCH (21:56)
[2023-05-03] MEDS: guaiFENesin 600 MG Tab.ER PO SCH (21:57)
[2023-05-04] MEDS: methylPREDNISolone Sodium Succinate 125 MG/2 ML SDV IVPUSH SCH ×5 (01:13→23:30)
[2023-05-04] MEDS: Acetaminophen 325 MG Tab PO PRN ×2 (01:41→15:59)
[2023-05-04] MEDS: Pantoprazole 40 MG Tab.CR PO SCH ×2 (05:10→15:41)
[2023-05-04 06:13] LABS: HEMATOCRIT 40.3 % (37.0-47.0); HEMOGLOBIN 12.9 g/dL (12.0-16.0); MEAN CORPUSCULAR HEMOGLOBIN 31.1 pg (27.0-34.0); MEAN CORPUSCULAR VOLUME 97.1 fL (80-100); PLATELET COUNT,PLT 222 10^3/uL (150-450); RED BLOOD CELL COUNT 4.15 10^6/uL (4.2-5.4); WHITE BLOOD CELL COUNT,WBC 6.3 10^3/uL (5.0-10.0)
[2023-05-04 06:19] LABS: BASOPHILS PERCENT AUTO 0.2 % (0.0-1.0); LYMPHOCYTES PERCENT AUTO 12.5 % (20.5-50.1); NEUTROPHILS PERCENT AUTO 81.3 % (42.2-75.2)
[2023-05-04 06:23] LABS: LYMPHOCYTES PERCENT MAN 13 % (20-50); MONOCYTES PERCENT MAN 5 % (2-8); SEG NEUTROPHILS PERCENT MAN 82 % (42-75)
[2023-05-04 06:25] LABS: A/G RATIO 0.74; ALBUMIN 2.8 g/dL (3.4-5.0); ANION GAP 16.7 mEq/L (7-13); BILIRUBIN TOTAL 0.3 mg/dL (0.2-1.0); C-REACTIVE PROTEIN 2.9 mg/dL (0.0-0.9); CALCIUM 8.8 mg/dL (8.5-10.1); CREATININE 1.05 mg/dL (0.55-1.02); EST CRCL DRUG DOSING (CG) 40.31 mL/min; MAGNESIUM 2.1 mg/dL (1.8-2.4); POTASSIUM,K 3.7 mmol/L (3.5-5.1); PROTEIN TOTAL,TP 6.6 g/dL (6.4-8.2)
[2023-05-04] MEDS: Albuterol/Ipratropium 3.0-0.5 MG/3 ML Neb Soln NEB PRN ×3 (07:02→17:40)
[2023-05-04] MEDS: Formoterol/Mometasone 200-5 MCG 8.8 GM Inhaler IH SCH ×3 (07:02→17:42)
[2023-05-04] MEDS: Tiotropium Bromide 4 GM Inhalation Spray (2.5mcg/1 dose; 10 doses) INH SCH ×2 (07:02→09:06)
[2023-05-04] MEDS: guaiFENesin/Dextromethorphan 100-10 MG/5 ML Soln 5 ML Cup PO PRN ×2 (12:04→16:01)
[2023-05-04] MEDS: Insulin Lispro 100 Units/ML 3 ML Vial SUBCUT SCH ×3 (12:06→18:06)
[2023-05-04] MEDS: Furosemide 20 MG Tab PO SCH (12:25)
[2023-05-04] MEDS: guaiFENesin 600 MG Tab.ER PO SCH ×2 (12:25→20:29)
[2023-05-04] MEDS: OXcarbazepine 300 MG Tab PO SCH ×2 (12:25→20:29)
[2023-05-04] MEDS: Montelukast 10 MG Tab PO SCH (12:25)
[2023-05-04] MEDS: Losartan 25 MG Tab PO SCH (12:25)
[2023-05-04] MEDS: Divalproex Sodium Delayed-Release 250 MG Tab.CR PO SCH ×2 (12:25→20:27)
[2023-05-04] MEDS: cefTRIAXone 1 GM Vial IVPUSH SCH (15:42)
[2023-05-04] MEDS: Azithromycin 500 MG in Sodium Chloride 0.9% 250 ML IV SCH (15:42)
[2023-05-04] MEDS: Acetaminophen/HYDROcodone 325-5 MG Tab PO PRN (16:00)
[2023-05-04] MEDS: diphenhydrAMINE 25 MG Tab PO PRN (18:21)
[2023-05-04] MEDS: rOPINIRole 2 MG Tab PO SCH (20:28)
[2023-05-04] MEDS: Saccharomyces Boulardii (Probiotic) 250 MG Cap PO SCH (20:28)
[2023-05-04] MEDS: Cyclobenzaprine 10 MG Tab PO SCH (20:28)
[2023-05-05] MEDS: Acetaminophen/HYDROcodone 325-5 MG Tab PO PRN ×3 (00:26→22:57)
[2023-05-05] MEDS: diphenhydrAMINE 25 MG Tab PO PRN (00:26)
[2023-05-05] MEDS: Albuterol/Ipratropium 3.0-0.5 MG/3 ML Neb Soln NEB PRN ×4 (04:22→17:18)
[2023-05-05] MEDS: Formoterol/Mometasone 200-5 MCG 8.8 GM Inhaler IH SCH ×2 (06:07→17:20)
[2023-05-05] MEDS: Tiotropium Bromide 4 GM Inhalation Spray (2.5mcg/1 dose; 10 doses) INH SCH (06:07)
[2023-05-05 06:29] LABS: BASOPHILS PERCENT AUTO 0.1 % (0.0-1.0); HEMATOCRIT 40.3 % (37.0-47.0); HEMOGLOBIN 12.9 g/dL (12.0-16.0); LYMPHOCYTES PERCENT AUTO 6.1 % (20.5-50.1); MEAN CORPUSCULAR HEMOGLOBIN 31.5 pg (27.0-34.0); MEAN CORPUSCULAR VOLUME 98.5 fL (80-100); MONOCYTES PERCENT AUTO 5.2 % (2-8); NEUTROPHILS PERCENT AUTO 88.6 % (42.2-75.2); PLATELET COUNT,PLT 280 10^3/uL (150-450); RED BLOOD CELL COUNT 4.09 10^6/uL (4.2-5.4); WHITE BLOOD CELL COUNT,WBC 15.6 10^3/uL (5.0-10.0)
[2023-05-05] MEDS: Pantoprazole 40 MG Tab.CR PO SCH ×2 (06:46→15:27)
[2023-05-05] MEDS: methylPREDNISolone Sodium Succinate 125 MG/2 ML SDV IVPUSH SCH ×3 (06:46→22:57)
[2023-05-05 06:49] LABS: ANION GAP 11.5 mEq/L (7-13); BILIRUBIN TOTAL 0.2 mg/dL (0.2-1.0); BUN/CREATININE RATIO 25.3 (No establ ref range); C-REACTIVE PROTEIN 0.7 mg/dL (0.0-0.9); CALCIUM 8.4 mg/dL (8.5-10.1); CREATININE 0.95 mg/dL (0.55-1.02); EST CRCL DRUG DOSING (CG) 44.55 mL/min; POTASSIUM,K 4.5 mmol/L (3.5-5.1); PROTEIN TOTAL,TP 6.7 g/dL (6.4-8.2)
[2023-05-05 06:54] LABS: A/G RATIO 0.81
[2023-05-05] MEDS: Furosemide 20 MG Tab PO SCH (08:55)
[2023-05-05] MEDS: Losartan 25 MG Tab PO SCH (08:55)
[2023-05-05] MEDS: Divalproex Sodium Delayed-Release 250 MG Tab.CR PO SCH ×2 (08:56→21:05)
[2023-05-05] MEDS: OXcarbazepine 300 MG Tab PO SCH ×2 (08:56→21:07)
[2023-05-05] MEDS: guaiFENesin 600 MG Tab.ER PO SCH ×2 (08:57→21:07)
[2023-05-05] MEDS: Montelukast 10 MG Tab PO SCH (08:57)
[2023-05-05] MEDS: Saccharomyces Boulardii (Probiotic) 250 MG Cap PO SCH ×2 (08:58→21:06)
[2023-05-05] MEDS: Insulin Lispro 100 Units/ML 3 ML Vial SUBCUT SCH ×3 (08:59→17:17)
[2023-05-05] MEDS ORDERED: methylPREDNISolone Sodium Succinate 125 MG/2 ML SDV IVPUSH SCH (09:45)
[2023-05-05] MEDS: guaiFENesin/Dextromethorphan 100-10 MG/5 ML Soln 5 ML Cup PO PRN ×2 (14:53→22:58)
[2023-05-05] MEDS: Azithromycin 500 MG in Sodium Chloride 0.9% 250 ML IV SCH (15:28)
[2023-05-05] MEDS: cefTRIAXone 1 GM Vial IVPUSH SCH (15:28)
[2023-05-05] MEDS: rOPINIRole 2 MG Tab PO SCH (21:06)
[2023-05-05] MEDS: Cyclobenzaprine 10 MG Tab PO SCH (21:08)
[2023-05-05] MEDS: LORazepam 0.5 MG Tab PO PRN (21:09)
[2023-05-06] MEDS: Acetaminophen 325 MG Tab PO PRN ×2 (02:40→09:07)
[2023-05-06] MEDS: LORazepam 0.5 MG Tab PO PRN (02:40)
[2023-05-06] MEDS: Pantoprazole 40 MG Tab.CR PO SCH (05:32)
[2023-05-06] MEDS: Albuterol/Ipratropium 3.0-0.5 MG/3 ML Neb Soln NEB PRN ×2 (05:32→11:41)
[2023-05-06 06:11] LABS: HEMATOCRIT 36.8 % (37.0-47.0); HEMOGLOBIN 11.7 g/dL (12.0-16.0); MEAN CORPUSCULAR HEMOGLOBIN 31.4 pg (27.0-34.0); MEAN CORPUSCULAR HGB CONC 31.8 g/dL (33.0-35.0); MEAN CORPUSCULAR VOLUME 98.7 fL (80-100); PLATELET COUNT,PLT 240 10^3/uL (150-450); RED BLOOD CELL COUNT 3.73 10^6/uL (4.2-5.4); WHITE BLOOD CELL COUNT,WBC 10.5 10^3/uL (5.0-10.0)
[2023-05-06 06:26] LABS: BASOPHILS PERCENT AUTO 0.2 % (0.0-1.0); LYMPHOCYTES PERCENT AUTO 10.2 % (20.5-50.1); MONOCYTES PERCENT AUTO 6.8 % (2-8); NEUTROPHILS PERCENT AUTO 82.8 % (42.2-75.2)
[2023-05-06] MEDS: Formoterol/Mometasone 200-5 MCG 8.8 GM Inhaler IH SCH (06:29)
[2023-05-06] MEDS: Tiotropium Bromide 4 GM Inhalation Spray (2.5mcg/1 dose; 10 doses) INH SCH (06:30)
[2023-05-06 06:34] LABS: ALANINE AMINOTRANSFERASE,ALT 11 U/L (14-59); ALBUMIN 2.7 g/dL (3.4-5.0); ALKALINE PHOSPHATASE 54 U/L (46-116); ASPARTATE AMNIOTRANSFERASE,AST 8 U/L (15-37); BILIRUBIN TOTAL 0.2 mg/dL (0.2-1.0); BLOOD UREA NITROGEN,BUN 24 mg/dL (7-18); BUN/CREATININE RATIO 26.7 (No establ ref range); CALCIUM 8.3 mg/dL (8.5-10.1); CARBON DIOXIDE,CO2 30 mmol/L (21-32); CHLORIDE,CL 99 mmol/L (98-107); EST CRCL DRUG DOSING (CG) 47.03 mL/min; GLUCOSE RANDOM 152 mg/dL (70-99); MAGNESIUM 2.1 mg/dL (1.8-2.4); PROTEIN TOTAL,TP 5.9 g/dL (6.4-8.2); SODIUM,NA 133 mmol/L (136-145)
[2023-05-06] MEDS: diphenhydrAMINE 25 MG Tab PO PRN (06:37)
[2023-05-06] MEDS: Acetaminophen/HYDROcodone 325-5 MG Tab PO PRN (06:37)
[2023-05-06] MEDS: methylPREDNISolone Sodium Succinate 125 MG/2 ML SDV IVPUSH SCH (06:40)
[2023-05-06 06:44] LABS: A/G RATIO 0.84; C-REACTIVE PROTEIN < 0.2 mg/dL (0.0-0.9); ESTIMATED GFR 71 mL/min (>=60)
[2023-05-06 06:45] LABS: HYPOCHROMASIA 1+ SLIGHT; LYMPHOCYTES PERCENT MAN 8 % (20-50); MONOCYTES PERCENT MAN 7 % (2-8); SEG NEUTROPHILS PERCENT MAN 85 % (42-75)
[2023-05-06 07:56] VITALS: PULSE 74
[2023-05-06] MEDS: Insulin Lispro 100 Units/ML 3 ML Vial SUBCUT SCH ×2 (08:46→12:24)
[2023-05-06] MEDS ORDERED: methylPREDNISolone Sodium Succinate 125 MG/2 ML SDV IVPUSH SCH (09:00)
[2023-05-06] MEDS: Saccharomyces Boulardii (Probiotic) 250 MG Cap PO SCH (09:05)
[2023-05-06] MEDS: guaiFENesin 600 MG Tab.ER PO SCH (09:05)
[2023-05-06] MEDS: Furosemide 20 MG Tab PO SCH (09:06)
[2023-05-06] MEDS: Montelukast 10 MG Tab PO SCH (09:06)
[2023-05-06] MEDS: Losartan 25 MG Tab PO SCH (09:06)
[2023-05-06] MEDS: Divalproex Sodium Delayed-Release 250 MG Tab.CR PO SCH (09:06)
[2023-05-06] MEDS: OXcarbazepine 300 MG Tab PO SCH (09:07)
[2023-05-06 12:17] VITALS: BP 136/80
== END 2023-05-06 12:50 | disposition home or self-care (01) | DRG 193 ==
LOC: DL.ED 10:06 → DL.MS 14:22
PROVIDERS: ADMIT Internal Medicine; ATTEND Internal Medicine
DX: J18.9 Pneumonia, unspecified organism (principal); J96.21 Acute and chronic respiratory failure with hypoxia; J44.1 Chronic obstructive pulmonary disease with (acute) exacerbation; Z68.41 Body mass index [BMI] 40.0-44.9, adult; Z20.822 Contact with and (suspected) exposure to COVID-19; K59.09 Other constipation; I10 Essential (primary) hypertension; E66.9 Obesity, unspecified; M19.90 Unspecified osteoarthritis, unspecified site; G40.909 Epilepsy, unspecified, not intractable, without status epilepticus; G25.81 Restless legs syndrome; F32.A Depression, unspecified; K21.9 Gastro-esophageal reflux disease without esophagitis; I77.810 Thoracic aortic ectasia; Z66 Do not resuscitate; E78.5 Hyperlipidemia, unspecified; M81.0 Age-related osteoporosis without current pathological fracture; R73.9 Hyperglycemia, unspecified; E88.09 Other disorders of plasma-protein metabolism, not elsewhere classified; R79.89 Other specified abnormal findings of blood chemistry; Z99.81 Dependence on supplemental oxygen; Z88.1 Allergy status to other antibiotic agents; Z88.8 Allergy status to other drugs, medicaments and biological substances; M79.7 Fibromyalgia; Z87.442 Personal history of urinary calculi; Z87.81 Personal history of (healed) traumatic fracture; Z86.79 Personal history of other diseases of the circulatory system; Z86.16 Personal history of COVID-19; Z90.89 Acquired absence of other organs; Z98.890 Other specified postprocedural states; Z90.49 Acquired absence of other specified parts of digestive tract; Z90.710 Acquired absence of both cervix and uterus; Z79.899 Other long term (current) drug therapy; Z87.891 Personal history of nicotine dependence
CPT/HCPCS: 36415; 71275; 80053; 81001; 83605; 83880; 84145; 84484 ×2; 85025; 86140; 87040 ×2; 87804 ×2; 93005 ×2; 93010; 94640 ×2; 96374; 96375; 99285 ×2; J0696; J2930; Q9967; U0002; 71045; 80061; 82947; 83735; 94010; 94060; 94664; 94667; 94668; 94762; 99223; 99232; 99233; 99238; A9270-GY; J0456; J1170; J1815-GY; J2405; J7050; J7620-GY

== ENCOUNTER 2023-08-31 22:10 | Emergency (ER) | payer MEDICARE, MEDICAID ==
[2023-08-31 22:47] VITALS: BP 99/47; PULSE 80
[2023-08-31] MEDS ORDERED: Take Home: predniSONE 20 MG, 4 Tab Pack PO ONE (23:09)
== END 2023-08-31 23:48 | disposition home or self-care (01) ==
LOC: DL.ED 22:10
DX: J45.901 Unspecified asthma with (acute) exacerbation (principal); I10 Essential (primary) hypertension; K21.9 Gastro-esophageal reflux disease without esophagitis; E66.9 Obesity, unspecified; Z68.41 Body mass index [BMI] 40.0-44.9, adult; Z86.16 Personal history of COVID-19; Z87.891 Personal history of nicotine dependence; Z79.899 Other long term (current) drug therapy; Z88.1 Allergy status to other antibiotic agents; Z88.6 Allergy status to analgesic agent; Z88.8 Allergy status to other drugs, medicaments and biological substances; Z90.49 Acquired absence of other specified parts of digestive tract; Z90.710 Acquired absence of both cervix and uterus
CPT/HCPCS: 93010; 99284; 99285; A9270-GY

== ENCOUNTER 2023-12-23 18:15 | Inpatient (IN) | payer MEDICARE, MEDICAID ==
[2023-12-23 18:55] LABS: HEMATOCRIT 46.5 % (37.0-47.0); HEMOGLOBIN 14.8 g/dL (12.0-16.0); MEAN CORPUSCULAR HEMOGLOBIN 30.8 pg (27.0-34.0); MEAN CORPUSCULAR HGB CONC 31.8 g/dL (33.0-35.0); MEAN CORPUSCULAR VOLUME 96.9 fL (80-100); PLATELET COUNT,PLT 180 10^3/uL (150-450); WHITE BLOOD CELL COUNT,WBC 6.1 10^3/uL (5.0-10.0)
[2023-12-23] MEDS: Sodium Chloride 0.9% 10 ML Syringe FLUSH PRN (18:57)
[2023-12-23] MEDS: methylPREDNISolone Sodium Succinate 125 MG/2 ML SDV IVPUSH ONE (18:58)
[2023-12-23] MEDS: Albuterol/Ipratropium 3.0-0.5 MG/3 ML Neb Soln NEB ONE (18:58)
[2023-12-23 19:01] LABS: BASOPHILS PERCENT AUTO 0.7 % (0.0-1.0); EOSINOPHILS PERCENT AUTO 0.3 % (1.0-3.0); LYMPHOCYTES PERCENT AUTO 27.1 % (20.5-50.1); MONOCYTES PERCENT AUTO 22.5 % (2-8); NEUTROPHILS PERCENT AUTO 49.4 % (42.2-75.2)
[2023-12-23 19:15] LABS: A/G RATIO 0.9; ALBUMIN 3.5 g/dL (3.4-5.0); ANION GAP 14.7 mEq/L (7-13); BAND PERCENT MAN 7 %; BILIRUBIN TOTAL 0.4 mg/dL (0.2-1.0); BUN/CREATININE RATIO 17.2 (No establ ref range); CALCIUM 8.6 mg/dL (8.5-10.1); CREATININE 0.99 mg/dL (0.55-1.02); EST CRCL DRUG DOSING (CG) 42.18 mL/min; LYMPHOCYTES PERCENT MAN 23 % (20-50); MONOCYTES PERCENT MAN 23 % (2-8); POTASSIUM,K 3.7 mmol/L (3.5-5.1); PROTEIN TOTAL,TP 7.3 g/dL (6.4-8.2); SEG NEUTROPHILS PERCENT MAN 47 % (42-75)
[2023-12-23 19:36] LABS: CORONAVIRUS COVID-19 NAA NEGATIVE (NEGATIVE); INFLUENZA A NAA POSITIVE (NEGATIVE); INFLUENZA B NAA NEGATIVE (NEGATIVE); RESPIRATORY SYNCYTIAL VIR NAA NEGATIVE (NEGATIVE)
[2023-12-23] MEDS: Ketorolac 30 MG/ML SDV IVPUSH ONE (20:16)
[2023-12-23] MEDS ORDERED: Polyethylene Glycol 3350 Powder 17 GM Packet PO PRN (22:18)
[2023-12-23] MEDS ORDERED: Naloxone 2 MG/2 ML Syringe IVPUSH PRN (22:18)
[2023-12-23] MEDS ORDERED: Magnesium Hydroxide 400 MG/5 ML Susp 30 ML Cup PO PRN (22:18)
[2023-12-23] MEDS ORDERED: Sennosides/Docusate Sodium 50-8.6 MG Tab PO PRN (22:18)
[2023-12-23] MEDS ORDERED: Metoprolol Tartrate 5 MG/5 ML SDV IVPUSH PRN (22:24)
[2023-12-23] MEDS ORDERED: Magnesium Sulfate/D5W 1 GM/100 ML BAG IV ONE (22:45)
[2023-12-23] MEDS ORDERED: Glucagon,Human Recombinant 1 MG Vial IM PRN (22:46)
[2023-12-23] MEDS ORDERED: 50% Dextrose in Water 50 ML Syringe IVPUSH PRN (22:46)
[2023-12-23] MEDS: Azithromycin 500 MG in Sodium Chloride 0.9% 250 ML IV ONE (23:35)
[2023-12-23] MEDS: HYDROmorphone 0.5 MG/0.5 ML Syringe IVPUSH PRN (23:37)
[2023-12-23] MEDS: Zolpidem 5 MG Tab PO PRN (23:51)
[2023-12-23] MEDS: Oseltamivir 75 MG Cap PO ONE (23:51)
[2023-12-23] MEDS: guaiFENesin/Dextromethorphan 100-10 MG/5 ML Soln 5 ML Cup PO PRN (23:51)
[2023-12-24] MEDS: Ondansetron 4 MG/2 ML SDV IVPUSH PRN (00:14)
[2023-12-24] MEDS: Divalproex Sodium Delayed-Release 250 MG Tab.CR PO ONE (00:15)
[2023-12-24] MEDS: OXcarbazepine 300 MG Tab PO ONE (00:15)
[2023-12-24] MEDS: Divalproex Sodium 250 MG Tab.ER PO ONE (02:22)
[2023-12-24 06:45] LABS: ALBUMIN 3.2 g/dL (3.4-5.0); ANION GAP 13.5 mEq/L (7-13); BILIRUBIN TOTAL 0.4 mg/dL (0.2-1.0); BUN/CREATININE RATIO 16.7 (No establ ref range); C-REACTIVE PROTEIN 2.19 ng/dL (<=0.50); CALCIUM 8.3 mg/dL (8.5-10.1); CREATININE 1.74 mg/dL (0.55-1.02); MAGNESIUM 2.5 mg/dL (1.8-2.4); POTASSIUM,K 4.5 mmol/L (3.5-5.1); PROTEIN TOTAL,TP 6.9 g/dL (6.4-8.2)
[2023-12-24 06:49] LABS: A/G RATIO 0.86
[2023-12-24 06:51] LABS: MEAN CORPUSCULAR HGB CONC 32.6 g/dL (33.0-35.0); MEAN CORPUSCULAR VOLUME 98.2 fL (80-100); PLATELET COUNT,PLT 153 10^3/uL (150-450); RED BLOOD CELL COUNT 4.38 10^6/uL (4.2-5.4); WHITE BLOOD CELL COUNT,WBC 3.7 10^3/uL (5.0-10.0)
[2023-12-24 07:14] LABS: BASOPHILS PERCENT AUTO 0.5 % (0.0-1.0); LYMPHOCYTES PERCENT AUTO 24.2 % (20.5-50.1); MONOCYTES PERCENT AUTO 13.2 % (2-8); NEUTROPHILS PERCENT AUTO 62.1 % (42.2-75.2)
[2023-12-24 07:40] LABS: BAND PERCENT MAN 4 %; LYMPHOCYTES PERCENT MAN 19 % (20-50); MONOCYTES PERCENT MAN 14 % (2-8); SEG NEUTROPHILS PERCENT MAN 63 % (42-75)
[2023-12-24] MEDS: Acetaminophen 325 MG Tab PO PRN (07:51)
[2023-12-24] MEDS: Insulin Lispro 100 Units/ML 3 ML Vial SUBCUT SCH (08:30)
[2023-12-24] MEDS: Pantoprazole 40 MG Tab.CR PO SCH (08:33)
[2023-12-24] MEDS: diphenhydrAMINE 25 MG Tab PO SCH (08:33)
[2023-12-24] MEDS: Montelukast 10 MG Tab PO SCH (08:33)
[2023-12-24] MEDS: guaiFENesin 600 MG Tab.ER PO SCH (08:33)
[2023-12-24] MEDS: Divalproex Sodium Delayed-Release 250 MG Tab.CR PO SCH (08:33)
[2023-12-24] MEDS: predniSONE 20 MG Tab PO SCH (08:33)
[2023-12-24] MEDS: OXcarbazepine 300 MG Tab PO SCH (08:36)
[2023-12-24] MEDS: Sodium Chloride 0.9% 1,000 ML IV SCH (08:37)
[2023-12-24] MEDS: Azithromycin 500 MG in Sodium Chloride 0.9% 250 ML IV SCH (08:39)
[2023-12-24] MEDS: Triamcinolone Acetonide 0.1% Oint 15 GM Tube TOP SCH (08:41)
[2023-12-24] MEDS ORDERED: Oseltamivir 75 MG Cap PO SCH (09:00)
[2023-12-24] MEDS ORDERED: Oseltamivir 30 MG Cap PO SCH (09:00)
[2023-12-24] MEDS: Midodrine 5 MG Tab PO ONE (09:48)
[2023-12-24] MEDS: Oseltamivir 30 MG Cap PO ONE (09:48)
[2023-12-24] MEDS: Tiotropium Bromide 4 GM Inhalation Spray (2.5mcg/1 dose; 10 doses) INH SCH (12:52)
[2023-12-24] MEDS ORDERED: Midodrine 5 MG Tab PO PRN (14:00)
[2023-12-24] MEDS: Albuterol/Ipratropium 3.0-0.5 MG/3 ML Neb Soln NEB PRN (16:06)
[2023-12-24] MEDS: Formoterol/Mometasone 200-5 MCG 8.8 GM Inhaler IH SCH (17:54)
[2023-12-24] MEDS: rOPINIRole 2 MG Tab PO SCH (20:22)
[2023-12-24] MEDS: Oseltamivir 30 MG Cap PO SCH (20:22)
[2023-12-24] MEDS: Cyclobenzaprine 10 MG Tab PO SCH (20:24)
[2023-12-24] MEDS: Acetaminophen/HYDROcodone 325-5 MG Tab PO PRN (20:29)
[2023-12-25 06:46] LABS: BASOPHILS PERCENT AUTO 0.2 % (0.0-1.0); HEMATOCRIT 37.3 % (37.0-47.0); HEMOGLOBIN 11.6 g/dL (12.0-16.0); MEAN CORPUSCULAR HEMOGLOBIN 30.9 pg (27.0-34.0); MEAN CORPUSCULAR HGB CONC 31.1 g/dL (33.0-35.0); MEAN CORPUSCULAR VOLUME 99.2 fL (80-100); MONOCYTES PERCENT AUTO 12.2 % (2-8); NEUTROPHILS PERCENT AUTO 66.6 % (42.2-75.2); PLATELET COUNT,PLT 144 10^3/uL (150-450); RED BLOOD CELL COUNT 3.76 10^6/uL (4.2-5.4); WHITE BLOOD CELL COUNT,WBC 5.7 10^3/uL (5.0-10.0)
[2023-12-25 06:54] LABS: ALBUMIN 2.7 g/dL (3.4-5.0); BILIRUBIN TOTAL 0.2 mg/dL (0.2-1.0); BUN/CREATININE RATIO 31.6 (No establ ref range); C-REACTIVE PROTEIN 0.6 ng/dL (<=0.50); CALCIUM 8.1 mg/dL (8.5-10.1); CREATININE 0.79 mg/dL (0.55-1.02); EST CRCL DRUG DOSING (CG) 52.86 mL/min; MAGNESIUM 2.3 mg/dL (1.8-2.4); PROTEIN TOTAL,TP 5.7 g/dL (6.4-8.2)
[2023-12-25 07:00] LABS: ANION GAP 10.9 mEq/L (7-13); POTASSIUM,K 4.9 mmol/L (3.5-5.1)
[2023-12-25 07:22] LABS: A/G RATIO 0.9
[2023-12-25] MEDS: guaiFENesin 600 MG Tab.ER PO SCH (08:49)
[2023-12-25] MEDS: Oxymetazoline 0.05% Nasal Spray 30 ML Bottle NAS PRN (21:53)
[2023-12-26] MEDS ORDERED: ALENDRONATE SODIUM 70 MG PO SCH (06:00)
[2023-12-26 06:33] LABS: HEMATOCRIT 36.5 % (37.0-47.0); HEMOGLOBIN 11.4 g/dL (12.0-16.0); MEAN CORPUSCULAR HEMOGLOBIN 31.3 pg (27.0-34.0); MEAN CORPUSCULAR HGB CONC 31.2 g/dL (33.0-35.0); MEAN CORPUSCULAR VOLUME 100.3 fL (80-100); PLATELET COUNT,PLT 122 10^3/uL (150-450); RED BLOOD CELL COUNT 3.64 10^6/uL (4.2-5.4); WHITE BLOOD CELL COUNT,WBC 6.1 10^3/uL (5.0-10.0)
[2023-12-26 06:34] LABS: BASOPHILS PERCENT AUTO 0.2 % (0.0-1.0); LYMPHOCYTES PERCENT AUTO 17.8 % (20.5-50.1); MONOCYTES PERCENT AUTO 10.9 % (2-8); NEUTROPHILS PERCENT AUTO 71.1 % (42.2-75.2)
[2023-12-26 06:41] LABS: ALANINE AMINOTRANSFERASE,ALT 11 U/L (14-59); ALBUMIN 2.7 g/dL (3.4-5.0); ALKALINE PHOSPHATASE 40 U/L (46-116); ANION GAP 10.9 mEq/L (7-13); ASPARTATE AMNIOTRANSFERASE,AST 10 U/L (15-37); BILIRUBIN TOTAL 0.2 mg/dL (0.2-1.0); BLOOD UREA NITROGEN,BUN 21 mg/dL (7-18); BUN/CREATININE RATIO 29.2 (No establ ref range); CALCIUM 8.6 mg/dL (8.5-10.1); CARBON DIOXIDE,CO2 28 mmol/L (21-32); CHLORIDE,CL 104 mmol/L (98-107); CREATININE 0.72 mg/dL (0.55-1.02); GLUCOSE RANDOM 118 mg/dL (70-99); MAGNESIUM 2.1 mg/dL (1.8-2.4); POTASSIUM,K 4.9 mmol/L (3.5-5.1); PROTEIN TOTAL,TP 5.6 g/dL (6.4-8.2); SODIUM,NA 138 mmol/L (136-145)
[2023-12-26 06:49] LABS: A/G RATIO 0.93; C-REACTIVE PROTEIN < 0.50 ng/dL (<=0.50); ESTIMATED GFR 92 mL/min (>=60)
[2023-12-26 07:06] LABS: BAND PERCENT MAN 3 %; LYMPHOCYTES PERCENT MAN 22 % (20-50); MONOCYTES PERCENT MAN 11 % (2-8); SEG NEUTROPHILS PERCENT MAN 64 % (42-75)
[2023-12-26] MEDS: tiZANidine 4 MG Tab PO SCH (21:51)
[2023-12-27] MEDS: hydrALAZINE 20 MG/ML SDV IVPUSH PRN (03:05)
[2023-12-27] MEDS: tiZANidine 4 MG Tab PO PRN (04:40)
[2023-12-27 06:41] LABS: HEMOGLOBIN 11.7 g/dL (12.0-16.0); MEAN CORPUSCULAR HEMOGLOBIN 31.6 pg (27.0-34.0); MEAN CORPUSCULAR HGB CONC 31.6 g/dL (33.0-35.0); PLATELET COUNT,PLT 117 10^3/uL (150-450); WHITE BLOOD CELL COUNT,WBC 8.1 10^3/uL (5.0-10.0)
[2023-12-27 07:05] LABS: ALANINE AMINOTRANSFERASE,ALT 13 U/L (14-59); ALBUMIN 2.8 g/dL (3.4-5.0); ALKALINE PHOSPHATASE 36 U/L (46-116); ANION GAP 10.4 mEq/L (7-13); ASPARTATE AMNIOTRANSFERASE,AST 7 U/L (15-37); BILIRUBIN TOTAL 0.2 mg/dL (0.2-1.0); BLOOD UREA NITROGEN,BUN 17 mg/dL (7-18); BUN/CREATININE RATIO 23.9 (No establ ref range); CALCIUM 8.5 mg/dL (8.5-10.1); CARBON DIOXIDE,CO2 30 mmol/L (21-32); CHLORIDE,CL 105 mmol/L (98-107); CREATININE 0.71 mg/dL (0.55-1.02); EST CRCL DRUG DOSING (CG) 58.81 mL/min; GLUCOSE RANDOM 96 mg/dL (70-99); MAGNESIUM 2.1 mg/dL (1.8-2.4); POTASSIUM,K 4.4 mmol/L (3.5-5.1); PROTEIN TOTAL,TP 5.8 g/dL (6.4-8.2); SODIUM,NA 141 mmol/L (136-145)
[2023-12-27 07:11] LABS: BASOPHILS PERCENT AUTO 0.2 % (0.0-1.0); EOSINOPHILS PERCENT AUTO 0.1 % (1.0-3.0); LYMPHOCYTES PERCENT AUTO 16.5 % (20.5-50.1); MONOCYTES PERCENT AUTO 11.6 % (2-8); NEUTROPHILS PERCENT AUTO 71.6 % (42.2-75.2)
[2023-12-27 07:12] LABS: A/G RATIO 0.93; C-REACTIVE PROTEIN < 0.50 ng/dL (<=0.50); ESTIMATED GFR 94 mL/min (>=60)
[2023-12-27 08:00] LABS: BAND PERCENT MAN 3 %; LYMPHOCYTES PERCENT MAN 18 % (20-50); MONOCYTES PERCENT MAN 9 % (2-8); SEG NEUTROPHILS PERCENT MAN 70 % (42-75)
[2023-12-27] MEDS: Formoterol/Mometasone 200-5 MCG 8.8 GM Inhaler IH SCH (08:29)
[2023-12-27 11:47] VITALS: BP 153/78; PULSE 65
== END 2023-12-27 13:00 | disposition home or self-care (01) | DRG 193 ==
LOC: DL.ED 18:15 → DL.MS 21:02
PROVIDERS: ADMIT Internal Medicine; ATTEND Internal Medicine
DX: J10.1 Influenza due to other identified influenza virus with other respiratory manifestations (principal); J11.1 Influenza due to unidentified influenza virus with other respiratory manifestations; J96.21 Acute and chronic respiratory failure with hypoxia; N17.9 Acute kidney failure, unspecified; J44.1 Chronic obstructive pulmonary disease with (acute) exacerbation; I10 Essential (primary) hypertension; E78.5 Hyperlipidemia, unspecified; Z79.899 Other long term (current) drug therapy; Z66 Do not resuscitate; K21.9 Gastro-esophageal reflux disease without esophagitis; R00.1 Bradycardia, unspecified; R73.9 Hyperglycemia, unspecified; I95.9 Hypotension, unspecified; K59.09 Other constipation; F43.12 Post-traumatic stress disorder, chronic; E66.9 Obesity, unspecified; R61 Generalized hyperhidrosis; R11.0 Nausea; G40.909 Epilepsy, unspecified, not intractable, without status epilepticus; M79.7 Fibromyalgia; G25.81 Restless legs syndrome; F31.9 Bipolar disorder, unspecified; F60.3 Borderline personality disorder; Z87.19 Personal history of other diseases of the digestive system; Z68.38 Body mass index [BMI] 38.0-38.9, adult; Z98.890 Other specified postprocedural states; Z87.891 Personal history of nicotine dependence; Z88.8 Allergy status to other drugs, medicaments and biological substances; Z88.1 Allergy status to other antibiotic agents; Z86.16 Personal history of COVID-19; Z90.89 Acquired absence of other organs; Z90.49 Acquired absence of other specified parts of digestive tract; Z90.710 Acquired absence of both cervix and uterus; Z87.442 Personal history of urinary calculi
CPT/HCPCS: 0241U; 36415; 71046; 80053; 82947; 83605; 83735; 83880; 85025; 86140; 87040; 94640; 94664; 96374; 96375; 99223; 99232; 99233; 99238; 99284; 99285; A9270-GY; J0360; J0456; J1170; J1885; J2405; J2930; J3475; J3490; J7030; J7050; J7512; J7620-GY

== ENCOUNTER 2024-08-28 19:30 | Emergency (ER) | payer MEDICARE, MEDICAID ==
[~2024-08-28 19:30] MED LIST changes: -Dextrose 5%-0.45% NaCl 1,000 ML IV SCH; -Midazolam 1 MG/ML 2 ML SDV ONE; -fentaNYL 100 MCG/2 ML SDV ONE
[2024-08-28] MEDS: Albuterol/Ipratropium 3.0-0.5 MG/3 ML Neb Soln NEB ONE (19:43)
[2024-08-28] MEDS: Magnesium Sulfate/Water Premix 2 GM in Premix Bag 1 BAG IV ONE (20:05)
[2024-08-28] MEDS: Dexamethasone 4 MG/ML SDV IVPUSH ONE (20:33)
[2024-08-28] MEDS: Albuterol 0.083% 2.5 MG/3 ML Neb Soln NEB ONE (20:34)
[2024-08-28 20:38] LABS: HEMATOCRIT 39.3 % (37.0-47.0); HEMOGLOBIN 12.4 g/dL (12.0-16.0); MEAN CORPUSCULAR HEMOGLOBIN 30.8 pg (27.0-34.0); MEAN CORPUSCULAR HGB CONC 31.6 g/dL (33.0-35.0); MEAN CORPUSCULAR VOLUME 97.8 fL (80-100); PLATELET COUNT,PLT 161 10^3/uL (150-450); RED BLOOD CELL COUNT 4.02 10^6/uL (4.2-5.4); WHITE BLOOD CELL COUNT,WBC 8.4 10^3/uL (5.0-10.0)
[2024-08-28 20:40] LABS: BASOPHILS PERCENT AUTO 0.2 % (0.0-1.0); EOSINOPHILS PERCENT AUTO 0.4 % (1.0-3.0); LYMPHOCYTES PERCENT AUTO 19.4 % (20.5-50.1); MONOCYTES PERCENT AUTO 14.2 % (2-8); NEUTROPHILS PERCENT AUTO 65.8 % (42.2-75.2)
[2024-08-28 20:50] LABS: BAND PERCENT MAN 6 %; LYMPHOCYTES PERCENT MAN 16 % (20-50); MONOCYTES PERCENT MAN 18 % (2-8); SEG NEUTROPHILS PERCENT MAN 60 % (42-75)
[2024-08-28 20:58] LABS: A/G RATIO 1.1; ALANINE AMINOTRANSFERASE,ALT 14 U/L (14-59); ALBUMIN 3.5 g/dL (3.4-5.0); ALKALINE PHOSPHATASE 67 U/L (46-116); ASPARTATE AMNIOTRANSFERASE,AST 10 U/L (15-37); BILIRUBIN TOTAL 0.3 mg/dL (0.2-1.0); BLOOD UREA NITROGEN,BUN 21 mg/dL (7-18); BUN/CREATININE RATIO 23.6 (No establ ref range); C-REACTIVE PROTEIN < 0.50 ng/dL (<=0.50); CALCIUM 9.4 mg/dL (8.5-10.1); CARBON DIOXIDE,CO2 32 mmol/L (21-32); CHLORIDE,CL 102 mmol/L (98-107); CREATININE 0.89 mg/dL (0.55-1.02); EST CRCL DRUG DOSING (CG) 46.92 mL/min; ESTIMATED GFR 71 mL/min (>=60); GLUCOSE RANDOM 126 mg/dL (70-99); PROTEIN TOTAL,TP 6.7 g/dL (6.4-8.2); SODIUM,NA 141 mmol/L (136-145)
[2024-08-28 22:13] VITALS: BP 141/90; PULSE 81
== END 2024-08-28 21:58 | disposition home or self-care (01) ==
LOC: DL.ED 19:30
DX: J44.1 Chronic obstructive pulmonary disease with (acute) exacerbation (principal); I10 Essential (primary) hypertension; K21.9 Gastro-esophageal reflux disease without esophagitis; E66.9 Obesity, unspecified; Z90.49 Acquired absence of other specified parts of digestive tract; Z90.710 Acquired absence of both cervix and uterus; Z86.16 Personal history of COVID-19; Z88.1 Allergy status to other antibiotic agents; Z88.8 Allergy status to other drugs, medicaments and biological substances; Z79.51 Long term (current) use of inhaled steroids; Z79.899 Other long term (current) drug therapy; Z68.38 Body mass index [BMI] 38.0-38.9, adult
CPT/HCPCS: 36415; 71046; 80053; 85025; 86140; 87428-QW; 96374; 96375; 99285-25; J1100; J3475; J7613-GY; J7620-GY

== ENCOUNTER 2024-10-20 16:26 | Emergency (ER) | payer MEDICARE, MEDICAID ==
[2024-10-20 16:45] VITALS: BP 171/70; PULSE 60
[2024-10-20] MEDS: Ondansetron 4 MG/2 ML SDV IVPUSH ONE (16:46)
[2024-10-20] MEDS: Lactated Ringers 1,000 ML IV ONE (16:47)
[2024-10-20] MEDS: HYDROmorphone 1 MG/ML Syringe IVPUSH ONE (16:47)
== END 2024-10-20 17:40 ==
LOC: DL.ED 16:26
DX: K42.9 Umbilical hernia without obstruction or gangrene (principal); R19.7 Diarrhea, unspecified; I10 Essential (primary) hypertension; J45.909 Unspecified asthma, uncomplicated; K21.9 Gastro-esophageal reflux disease without esophagitis; E66.9 Obesity, unspecified; Z68.39 Body mass index [BMI] 39.0-39.9, adult; Z86.16 Personal history of COVID-19; Z90.49 Acquired absence of other specified parts of digestive tract; Z90.710 Acquired absence of both cervix and uterus; Z87.891 Personal history of nicotine dependence; Z88.8 Allergy status to other drugs, medicaments and biological substances; Z79.51 Long term (current) use of inhaled steroids; Z79.899 Other long term (current) drug therapy
CPT/HCPCS: 96361; 96374; 96375; 99284; J1171; J2405; J7120

== ENCOUNTER 2025-01-04 10:10 | Emergency (ER) | payer MEDICARE, MEDICAID ==
[2025-01-04] MEDS ORDERED: Sodium Chloride 0.9% 500 ML IV SCH (10:30)
[2025-01-04 10:38] LABS: HEMATOCRIT 39.5 % (37.0-47.0); HEMOGLOBIN 11.9 g/dL (12.0-16.0); MEAN CORPUSCULAR HEMOGLOBIN 28.9 pg (27.0-34.0); MEAN CORPUSCULAR HGB CONC 30.1 g/dL (33.0-35.0); MEAN CORPUSCULAR VOLUME 95.9 fL (80-100); PLATELET COUNT,PLT 227 10^3/uL (150-450); RED BLOOD CELL COUNT 4.12 10^6/uL (4.2-5.4); WHITE BLOOD CELL COUNT,WBC 11.7 10^3/uL (5.0-10.0)
[2025-01-04 10:53] LABS: ALBUMIN 3.5 g/dL (3.4-5.0); BILIRUBIN DIRECT 0.1 mg/dL (0.0-0.2); BILIRUBIN INDIRECT 0.1; BILIRUBIN TOTAL 0.2 mg/dL (0.2-1.0); CALCIUM 8.9 mg/dL (8.5-10.1); CREATININE 1.48 mg/dL (0.55-1.02); EST CRCL DRUG DOSING (CG) 33.19 mL/min; PROTEIN TOTAL,TP 6.9 g/dL (6.4-8.2)
[2025-01-04 10:55] LABS: BASOPHILS PERCENT AUTO 0.3 % (0.0-1.0); MONOCYTES PERCENT AUTO 17.4 % (2-8); NEUTROPHILS PERCENT AUTO 69.3 % (42.2-75.2)
[2025-01-04 11:15] LABS: COLOR,URINE YELLOW (YELLOW)
[2025-01-04 11:16] LABS: APPEARANCE,URINE CLEAR (CLEAR); BILIRUBIN,URINE NEGATIVE (NEGATIVE); GLUCOSE,URINE 100 (NEGATIVE); KETONES,URINE NEGATIVE (NEGATIVE); LEUKOCYTE ESTERASE,URINE NEGATIVE (NEGATIVE); NITRITE,URINE NEGATIVE (NEGATIVE); OCCULT BLOOD,URINE TRACE-INTACT (NEGATIVE); PH,URINE 6.5 (5.0-9.0); PROTEIN,URINE >=300 (NEGATIVE); UROBILINOGEN,URINE 0.2 mg/dL (0.2-1.0)
[2025-01-04] MEDS: Albuterol/Ipratropium 3.0-0.5 MG/3 ML Neb Soln NEB ONE (11:16)
[2025-01-04 11:29] LABS: AMORPHOUS SEDIMENT,URINE MODERATE /HPF (NOT SEEN); BACTERIA,URINE FEW /HPF (0-FEW/HPF); EPITHELIAL CELLS,URINE NOT SEEN /HPF (NOT SEEN); GRANULAR CASTS,URINE MODERATE; HYALINE CASTS,URINE FEW
[2025-01-04 11:30] LABS: FINE GRANULAR CASTS,URINE FEW /LPF (NOT SEEN)
[2025-01-04] MEDS: Heparin Sodium 5,000 Units/ML Vial IVPUSH ONE (11:38)
[2025-01-04] MEDS: Heparin Sodium/0.45% NaCl 25,000 UNITS/500 ML BAG IV SCH (11:39)
[2025-01-04] MEDS: DOBUTamine/Dextrose 5%-Water 500 MG/250 ML BAG IV SCH (11:48)
[2025-01-04 11:52] LABS: BAND PERCENT MAN 10 %; LYMPHOCYTES PERCENT MAN 14 % (20-50); MONOCYTES PERCENT MAN 17 % (2-8); NRBC MANUAL 1 /100WBC; PLATELET COUNT ESTIMATE ADEQUATE; SEG NEUTROPHILS PERCENT MAN 59 % (42-75)
[2025-01-04] MEDS: Aspirin 81 MG Tab.Chew PO ONE (12:11)
[2025-01-04 12:50] LABS: LACTIC ACID 2.1 mmol/L (0.4-2.0)
[2025-01-04] MEDS: Norepinephrine Bit/D5W Premix 250 ML ONE (12:56)
[2025-01-04] MEDS: Norepinephrine Bit/D5W Premix 250 ML IV SCH (12:57)
[2025-01-04 13:04] VITALS: PULSE 110
[2025-01-04 13:18] VITALS: BP 88/54
== END 2025-01-04 13:51 ==
LOC: DL.ED 10:10
DX: I21.4 Non-ST elevation (NSTEMI) myocardial infarction (principal); I95.9 Hypotension, unspecified; J96.90 Respiratory failure, unspecified, unspecified whether with hypoxia or hypercapnia; R57.0 Cardiogenic shock; I11.0 Hypertensive heart disease with heart failure; I50.9 Heart failure, unspecified; J44.89 Other specified chronic obstructive pulmonary disease; Z86.16 Personal history of COVID-19; Z88.1 Allergy status to other antibiotic agents; Z88.8 Allergy status to other drugs, medicaments and biological substances; Z79.899 Other long term (current) drug therapy
CPT/HCPCS: 36415; 36556; 51702; 71045; 80048; 80076; 81001; 83605; 84484; 85025; 85730; 87040; 93005; 93010; 94640; 94660; 96365; 96366; 96368; 99285-25; 99291; A9270-GY; C1751; J1250; J1644

== ENCOUNTER 2025-01-19 04:29 | Emergency (ER) | payer MEDICARE, MEDICAID ==
[2025-01-19] MEDS: Albuterol/Ipratropium 3.0-0.5 MG/3 ML Neb Soln NEB ONE (04:38)
[2025-01-19] MEDS: Furosemide 40 MG/4 ML VIAL IVPUSH ONE (04:45)
[2025-01-19 04:49] LABS: HEMATOCRIT 39.6 % (37.0-47.0); HEMOGLOBIN 11.8 g/dL (12.0-16.0); MEAN CORPUSCULAR HGB CONC 29.8 g/dL (33.0-35.0); MEAN CORPUSCULAR VOLUME 97.3 fL (80-100); PLATELET COUNT,PLT 325 10^3/uL (150-450); RED BLOOD CELL COUNT 4.07 10^6/uL (4.2-5.4); WHITE BLOOD CELL COUNT,WBC 17.4 10^3/uL (5.0-10.0)
[2025-01-19 04:51] LABS: O2 DELIVERY DEVICE NASAL CANNULA
[2025-01-19 04:54] LABS: BASOPHILS PERCENT AUTO 0.3 % (0.0-1.0); EOSINOPHILS PERCENT AUTO 1.7 % (1.0-3.0); LYMPHOCYTES PERCENT AUTO 15.3 % (20.5-50.1); MONOCYTES PERCENT AUTO 12.7 % (2-8)
[2025-01-19] MEDS: Dexamethasone 4 MG/ML SDV IVPUSH ONE (04:54)
[2025-01-19] MEDS: Magnesium Sulfate 2 GM/50 mL 2 GM in Premix Bag 1 BAG IV ONE (04:55)
[2025-01-19 04:56] LABS: PH,VENOUS 7.26 (7.31-7.41)
[2025-01-19 04:57] LABS: BASE EXCESS VENOUS 1.4 mmol/l ((-2)-(+3)); BICARBONATE,VENOUS 30 mmol/l (19-25); O2 SATURATION VENOUS 52.4 % (60-80); PO2 VENOUS 41 mmHg (35-42)
[2025-01-19 04:58] LABS: PCO2 VENOUS 69 mmHg (41-51)
[2025-01-19 05:10] VITALS: BP 238/121; PULSE 87
[2025-01-19] MEDS: Albuterol/Ipratropium 3.0-0.5 MG/3 ML Neb Soln ONE (05:13)
[2025-01-19 05:14] LABS: A/G RATIO 0.7; ALANINE AMINOTRANSFERASE,ALT 23 U/L (14-59); ALBUMIN 3.6 g/dL (3.4-5.0); ALKALINE PHOSPHATASE 61 U/L (46-116); ANION GAP 14.1 mEq/L (7-13); ASPARTATE AMNIOTRANSFERASE,AST 14 U/L (15-37); BILIRUBIN TOTAL 0.5 mg/dL (0.2-1.0); BLOOD UREA NITROGEN,BUN 15 mg/dL (7-18); BUN/CREATININE RATIO 14.4 (No establ ref range); CALCIUM 9.6 mg/dL (8.5-10.1); CARBON DIOXIDE,CO2 30 mmol/L (21-32); CHLORIDE,CL 99 mmol/L (98-107); CREATININE 1.04 mg/dL (0.55-1.02); GLUCOSE RANDOM 168 mg/dL (70-99); LIPASE 24 U/L (16-77); MAGNESIUM 1.7 mg/dL (1.8-2.4); POTASSIUM,K 5.1 mmol/L (3.5-5.1); PROTEIN TOTAL,TP 8.5 g/dL (6.4-8.2); SODIUM,NA 138 mmol/L (136-145)
[2025-01-19 05:15] LABS: B-TYPE NATRIURETIC PEPTIDE,BNP 950 pg/ml (0-100)
[2025-01-19 05:17] LABS: ESTIMATED GFR 59 mL/min (>=60); LACTIC ACID 1.9 mmol/L (0.4-2.0)
[2025-01-19 05:49] LABS: O2 DELIVERY DEVICE CPAP; PCO2 VENOUS 60 mmHg (41-51); PO2 VENOUS 44 mmHg (35-42)
[2025-01-19 05:50] LABS: BASE EXCESS VENOUS 2.1 mmol/l ((-2)-(+3)); BICARBONATE,VENOUS 29 mmol/l (19-25); O2 SATURATION VENOUS 61.9 % (60-80)
[2025-01-19 06:10] LABS: LYMPHOCYTES PERCENT MAN 14 % (20-50); MONOCYTES PERCENT MAN 12 % (2-8); SEG NEUTROPHILS PERCENT MAN 74 % (42-75)
== END 2025-01-19 06:38 ==
LOC: DL.ED 04:29
DX: J44.1 Chronic obstructive pulmonary disease with (acute) exacerbation (principal); I11.0 Hypertensive heart disease with heart failure; I50.9 Heart failure, unspecified; E83.52 Hypercalcemia; E66.9 Obesity, unspecified; Z88.1 Allergy status to other antibiotic agents; Z88.0 Allergy status to penicillin; Z79.899 Other long term (current) drug therapy; Z79.51 Long term (current) use of inhaled steroids; Z86.16 Personal history of COVID-19; Z90.710 Acquired absence of both cervix and uterus; Z90.49 Acquired absence of other specified parts of digestive tract
CPT/HCPCS: 36415; 71045; 80053; 82803; 83605; 83690; 83735; 83880; 84145; 84484; 85025; 87040; 87428; 93005; 93010; 94640; 94660; 96374; 96375; 99285; A9270; J1100; J1938; J3475

== ENCOUNTER 2025-08-20 10:58 | Emergency (ER) | payer MEDICARE, MEDICAID ==
[2025-08-20 11:39] LABS: BASOPHILS PERCENT AUTO 0.5 % (0.0-1.0); EOSINOPHILS PERCENT AUTO 2.3 % (1.0-3.0); LYMPHOCYTES PERCENT AUTO 25.3 % (20.5-50.1); MONOCYTES PERCENT AUTO 13.2 % (2-8); NEUTROPHILS PERCENT AUTO 58.7 % (42.2-75.2); PLATELET COUNT,PLT 199 10^3/uL (150-450); RED BLOOD CELL COUNT 4.47 10^6/uL (4.2-5.4); WHITE BLOOD CELL COUNT,WBC 7.7 10^3/uL (5.0-10.0)
[2025-08-20 11:57] LABS: INR 1.0 (0.9-1.2); PTT,PARTIAL THROMBOPLSTIN TIME 24.7 SEC (22.0-34.0)
[2025-08-20 12:01] LABS: A/G RATIO 0.8; ALANINE AMINOTRANSFERASE,ALT 7.0 U/L (14-59); ASPARTATE AMNIOTRANSFERASE,AST 12.0 U/L (15-37); BILIRUBIN TOTAL 0.3 mg/dL (0.2-1.0); BLOOD UREA NITROGEN,BUN 21.0 mg/dL (7-18); CARBON DIOXIDE,CO2 35.0 mmol/L (21-32); CHLORIDE,CL 97.0 mmol/L (98-107); CREATININE 1.13 mg/dL (0.55-1.02); EST CRCL DRUG DOSING (CG) 36.45 mL/min; ESTIMATED GFR 53.0 mL/min (>=60); GLUCOSE RANDOM 109.0 mg/dL (70-99); POTASSIUM,K 3.2 mmol/L (3.5-5.1); PROTEIN TOTAL,TP 7.6 g/dL (6.4-8.2); SODIUM,NA 138.0 mmol/L (136-145)
[2025-08-20] MEDS: Potassium Chloride 10 MEQ Tab.ER PO ONE (12:30)
[2025-08-20 13:15] VITALS: BP 135/85; PULSE 69
== END 2025-08-20 14:39 | disposition home or self-care (01) ==
LOC: DL.ED 10:58
DX: R07.89 Other chest pain (principal); E87.6 Hypokalemia; I10 Essential (primary) hypertension; Z79.899 Other long term (current) drug therapy; Z86.16 Personal history of COVID-19; Z90.49 Acquired absence of other specified parts of digestive tract; Z88.1 Allergy status to other antibiotic agents; Z88.8 Allergy status to other drugs, medicaments and biological substances
CPT/HCPCS: 36415; 71045; 80053; 83735; 84484; 85025; 85610; 85730; 93005; 99285; A9270

== ENCOUNTER 2025-08-27 06:02 | Emergency (ER) | payer MEDICARE, MEDICAID ==
[2025-08-27] MEDS ORDERED: Sodium Chloride 0.9% 10 ML Syringe FLUSH PRN (06:25)
[2025-08-27 06:36] LABS: APPEARANCE,URINE CLEAR (CLEAR); GLUCOSE,URINE 250 (NEGATIVE); OCCULT BLOOD,URINE TRACE-INTACT (NEGATIVE)
[2025-08-27 06:45] LABS: SQUAMOUS EPITHELIAL CELLS,UR RARE /HPF (NOT SEEN)
[2025-08-27 06:55] LABS: BASOPHILS PERCENT AUTO 0.6 % (0.0-1.0); EOSINOPHILS PERCENT AUTO 3.5 % (1.0-3.0); LYMPHOCYTES PERCENT AUTO 25.1 % (20.5-50.1); MONOCYTES PERCENT AUTO 12.8 % (2-8); NEUTROPHILS PERCENT AUTO 58.0 % (42.2-75.2); PLATELET COUNT,PLT 198 10^3/uL (150-450); RED BLOOD CELL COUNT 4.01 10^6/uL (4.2-5.4); WHITE BLOOD CELL COUNT,WBC 7.1 10^3/uL (5.0-10.0)
[2025-08-27 07:16] LABS: ALANINE AMINOTRANSFERASE,ALT 12.0 U/L (14-59); ASPARTATE AMNIOTRANSFERASE,AST 10.0 U/L (15-37); BILIRUBIN TOTAL 0.3 mg/dL (0.2-1.0); BLOOD UREA NITROGEN,BUN 22.0 mg/dL (7-18); CARBON DIOXIDE,CO2 35.0 mmol/L (21-32); CHLORIDE,CL 100.0 mmol/L (98-107); CREATININE 1.02 mg/dL (0.55-1.02); EST CRCL DRUG DOSING (CG) 40.39 mL/min; GLUCOSE RANDOM 104.0 mg/dL (70-99); POTASSIUM,K 3.1 mmol/L (3.5-5.1); PROTEIN TOTAL,TP 6.9 g/dL (6.4-8.2); SODIUM,NA 143.0 mmol/L (136-145)
[2025-08-27 07:21] LABS: A/G RATIO 0.92; ESTIMATED GFR 60.0 mL/min (>=60)
[2025-08-27] MEDS: Iopamidol 755 Mg/ML 100 ML Bottle IVPUSH ONE (09:16)
[2025-08-27] MEDS: Ondansetron 4 MG/2 ML SDV IVPUSH ONE (09:25)
[2025-08-27] MEDS: Potassium Chloride 10% 20 MEQ/15 ML Soln 15 ML UD Cup PO ONE (11:00)
[2025-08-27 11:01] VITALS: BP 136/88; PULSE 62
== END 2025-08-27 11:48 | disposition home or self-care (01) ==
LOC: DL.ED 06:02
DX: G45.9 Transient cerebral ischemic attack, unspecified (principal); I10 Essential (primary) hypertension; K21.9 Gastro-esophageal reflux disease without esophagitis; J44.89 Other specified chronic obstructive pulmonary disease; E66.9 Obesity, unspecified; Z88.8 Allergy status to other drugs, medicaments and biological substances; Z88.1 Allergy status to other antibiotic agents; Z79.51 Long term (current) use of inhaled steroids; Z79.899 Other long term (current) drug therapy; Z86.16 Personal history of COVID-19; Z90.49 Acquired absence of other specified parts of digestive tract; Z90.89 Acquired absence of other organs; Z68.36 Body mass index [BMI] 36.0-36.9, adult
CPT/HCPCS: 36415; 70450; 70496; 70498; 80053; 81001; 83735; 84484; 85025; 93005; 96374; 97165; 99285; A9270; J2405; Q9967; 93010